=== PATIENT | male | born 1955 | race Caucasian/White ===

== ENCOUNTER 2016-12-16 13:16 | Emergency (ER) | payer MEDICARE, MEDICAID ==
[2016-12-16 13:53] LABS: Hematocrit 49.6 % (42.0-52.0); Hemoglobin 16.3 gm/dL (13.5-18.0); Mean Cell Volume 82.5 fl (78-100); Mean Corpuscular Hemoglobin 27.1 pg (27-31); Mean Corpuscular Hgb Conc 32.9 g/dl (32-36); Mean Platelet Volume 8.7 fl (6.0-9.5); Neutrophil # 4.6 K/mm3 (1.3-6.0); Neutrophil % 77.5 % (42-75.0); Platelet Count 211 K/mm3 (150-450); Red Blood Count 6.01 M/mm3 (4.7-6.0); Red Cell Distribution Width 14.2 % (11.5-14.0); White Blood Count 5.9 K/mm3 (4.0-10.5)
[2016-12-16 14:28] LABS: Albumin * 3.4 gm/dl (3.4-5.0); Anion Gap 14.3 mmol/L (6.8-13.8); BUN/Creatinine Ratio 15.3 (9.0-21.6); Bilirubin, Total 0.7 mg/dL (0.0-1.1); Ca. Corrected For Albumin 9.3 mg/dL (8.4-10.2); Calcium * 9.1 mg/dL (7.9-10.9); Carbon Dioxide 26.5 mmol/L (24-32.6); Potassium 3.8 mmol/L (3.4-4.6); Total Protein 8.5 gm/dL (6.2-8.2)
[2016-12-16 15:09] LABS: Urine Bilirubin Negative (NEGATIVE); Urine Ketone Negative (NEGATIVE); Urine Nitrite Negative (NEGATIVE); Urine Protein Negative (NEGATIVE); Urine Urobilinogen Normal (NORMAL); Urine pH 5.5 pH (5.0-7.0)
[2016-12-16] MEDS ORDERED: NORMAL SALINE 1,000 ML IV ONE (15:12)
[2016-12-16 15:21] LABS: Urine Appearance Clear; Urine Bacteria None Seen; Urine Blood 10 /ul (NEGATIVE); Urine Color Yellow; Urine RBC None Seen /hpf (0-5); Urine WBC None Seen /hpf (0-5)
[2016-12-16] MEDS ORDERED: LEVOFLOXACIN 500 MG TABLET PO ONE (16:48)
[2016-12-16 17:07] VITALS: BP 146/69
[2016-12-16] MEDS ORDERED: LEVOFLOXACIN 500 MG TABLET ONE (17:07)
--- NOTE | 2016-12-16 17:23 | ERNOTE ---
Medical Problem HPI - Narrative Date of Service: 12/16/16 - General Chief Complaint: General Assessment Time Seen by Provider: 12/16/16 14:59 Source: patient Exam Limitations: no limitations - Immun/Allergies/Home Medications Immunizations: IMMUNIZATION HX Immunizations Up to Date Yes History of Influenza Vaccine More Information Required Hx Pneumococcal Vaccination More Information Required Allergies/Adverse Reactions: Allergies aspirin Adverse Reaction (Intermediate, Verified 12/16/16 13:28) upset stomach Home Medications: HOME MEDICATIONS Glimepiride [Amaryl] 1 mg PO DAILY 07/25/16 [Last Taken Unknown] Hydrochlorothiazide 12.5 mg PO DAILY 07/25/16 [Last Taken Unknown] Hydrocodone/Acetaminophen [Lorcet 5-325 mg Tablet] 1 each PO TID PRN 07/25/16 [ Last Taken 07/25/16] Levofloxacin [Levaquin] 500 mg PO DAILY #10 tab 12/16/16 [Last Taken Unknown] - History of Present History Narrative: Patient presents relating he just hasn't been feeling well. He relates this has been going on for 3 days or so. Some cough. No fever. Feels fatigued. He relates no CP or SOB. No vomiting. Relates his abdomen will sometimes cramp but none now. Occasional diarrhea, non-bloody. No focal weakness. He tells be several times he is going to go home today. Timing: constant Severity: mild Modifying Factors - (Improves): Present: other - none Modifying Factors - (Worsens): Present: other - none Review of Systems - Review of Systems Constitutional: Absent: fever Respiratory: Present: cough Cardiology: Absent: chest pain Gastrointestinal/Abdominal: Absent: vomiting Genitourinary: Absent: dysuria Neurological: Absent: weakness All Other Systems: All systems neg except as marked - Patient's Past Medical History Patient History - Medical: Diabetes Type 2, Rheumatoid Arthritis Patient History - Cardiac/Respiratory: COPD, Hyperlipidemia, Peripheral Vascular Disease Patient History - Cancer: No Hx of Cancer Patient History - Surgical Procedures: Colonoscopy, Other - Family History Mother Family History - Medical: Father Family History - Medical: - Social History Living Situations: home Smoking Status: Current every day smoker Have you smoked in the past 12 months: Yes Do you dip or chew tobacco: No Alcohol Use: none Drug Use: none Physical Exam - Physical Exam General Appearance: Present: alert, no apparent distress, other - speaking in full sentences. Non-toxic, no distress. Eye Exam: Normal inspection: bilateral, PERRL: bilateral Ears, Nose, Throat: Present: normal ENT inspection. Absent: pharyngeal erythema , pharyngeal swelling, tonsillar exudate Neck: Present: normal inspection, nontender Respiratory: Present: no respiratory distress, normal breath sounds, no accessory muscle use, lungs clear Cardiovascular/Chest: Present: tachycardia, other - HR 105 on my exam Gastrointestinal/Abdominal: Present: normal bowel sounds, nontender, nondistended, soft. 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 Absent: disoriented to situation Skin Exam: Present: normal color, other - chronic changes lower extremitiees. ED Progress - Results and Orders Patient's Lab Results:: I have reviewed the patient's lab results. - Vital Signs Patient's Vital Signs:: I have reviewed the patient's vital signs. Vital Signs: Vital Signs 12/16/16 12/16/16 12/16/16 13:26 15:01 16:26 Temperature 38.1 C H Pulse Rate 115 H 103 H 108 H Respiratory 14 20 18 Rate Blood Pressure 165/73 131/59 132/59 O2 Sat by Pulse 64 L 95 97 Oximetry 12/16/16 17:05 Temperature Pulse Rate 120 H Respiratory 16 Rate Blood Pressure 146/69 O2 Sat by Pulse 91 Oximetry - X-Ray X-Ray #1 X-Ray: chest X-ray Comments: I reviewed rdiology report and discussed this with the patient. - Progress/Reassessment Chief Complaint: General Assessment Progress:: Re-examined Progress Note-Subjective: 12/16/16 17:18 Patient has probable pneumonia based on exam and CXR. PSI <70. I offered him admission but he dedclines this and wishes to go home. He had told bme that when I first saw him also. He request to go home. I discussed the need for close f/u as well as warnign signs and reasons to return. No other acute life threats found. No CP. Departure - Departure Clinical Impression: Pneumonia Disposition: Home self-care Condition: Stable Instructions: Community-Acquired Pneumonia, Adult, [id number] Additional Instructions: Rest. Antibiotics. Follow-up with primary doctor within 48 hours for a re- check. Return if you change your mind about being admitted to the hospital, develop trouble breathing or if your condition worsens or changes in any way. Referrals: Valentina Garcia FNP [Primary Care Provider] - Prescriptions: Levofloxacin [Levaquin] 500 mg PO DAILY #10 tab
== END 2016-12-16 17:32 | disposition home or self-care (01) ==
LOC: ER 13:16
DX: F17.210 Nicotine dependence, cigarettes, uncomplicated (principal); J18.9 Pneumonia, unspecified organism

== ENCOUNTER 2016-12-18 13:29 | Inpatient (IN) | payer MEDICARE, MEDICAID ==
[2016-12-18 14:01] LABS: Hematocrit 49.4 % (42.0-52.0); Hemoglobin 16.6 gm/dL (13.5-18.0); Mean Cell Volume 80.9 fl (78-100); Mean Corpuscular Hemoglobin 27.2 pg (27-31); Mean Corpuscular Hgb Conc 33.6 g/dl (32-36); Mean Platelet Volume 8.9 fl (6.0-9.5); Neutrophil # 3.7 K/mm3 (1.3-6.0); Platelet Count 170 K/mm3 (150-450); Red Blood Count 6.11 M/mm3 (4.7-6.0); Red Cell Distribution Width 13.9 % (11.5-14.0); White Blood Count 5.4 K/mm3 (4.0-10.5)
[2016-12-18] MEDS: NORMAL SALINE 1,000 ML IV PRN ×3 (14:07→17:36)
[2016-12-18 14:20] LABS: Anion Gap 12.2 mmol/L (6.8-13.8); BUN/Creatinine Ratio 15.7 (9.0-21.6); Bilirubin, Total 0.7 mg/dL (0.0-1.1); CRP 9.2 mg/dL (0.0-0.9); Ca. Corrected For Albumin 9.3 mg/dL (8.4-10.2); Calcium * 8.8 mg/dL (7.9-10.9); Carbon Dioxide 30.3 mmol/L (24-32.6); Potassium 3.5 mmol/L (3.4-4.6); Total Protein 8.1 gm/dL (6.2-8.2)
[2016-12-18 14:21] LABS: Troponin I 0.094 ng/ml (0.00-0.10)
--- NOTE | 2016-12-18 14:40 | ERNOTE ---
Date of Service: 12/18/16 Time Seen by Provider: 12/18/16 13:49 Stated Complaint: PNEUMONIA Presenting Symptoms:: cough Source: patient Exam Limitations: no limitations Immunizations: IMMUNIZATION HX Immunizations Up to Date Yes History of Influenza Vaccine More Information Required Hx Pneumococcal Vaccination More Information Required Allergies/Adverse Reactions: Allergies aspirin Adverse Reaction (Intermediate, Verified 12/16/16 13:28) upset stomach Home Medications: HOME MEDICATIONS Glimepiride [Amaryl] 1 mg PO DAILY 07/25/16 [Last Taken Unknown] Hydrochlorothiazide 12.5 mg PO DAILY 07/25/16 [Last Taken Unknown] Hydrocodone/Acetaminophen [Lorcet 5-325 mg Tablet] 1 each PO TID PRN 07/25/16 [ Last Taken 07/25/16] Levofloxacin [Levaquin] 500 mg PO DAILY #10 tab 12/16/16 [Last Taken Unknown] - History of Present Ilness Narrative: Pt. comes in with c/o SOB for over two weeks. Pt. was seen here two days ago in this ER and was sent home with Levaquin as pt. refused admission. Pt. denies any improvement in symptoms and actually states that symptoms have worsened. Pt. denies any fevers, CP, NVD, but does state that he has SOB, and fatigue. Review of Systems - Review of Systems Constitutional: Present: fever, fatigue, malaise. Absent: weakness EYE: Present: no symptoms reported ENT: Present: no symptoms reported Respiratory: Present: shortness of breath, cough, orthopnea, wheezing Cardiology: Present: no symptoms reported. Absent: edema Gastrointestinal/Abdominal: Present: no symptoms reported. Absent: nausea, vomiting, diarrhea Genitourinary: Present: no symptoms reported. Absent: frequency, decreased urinary output Musculoskeletal: Present: no symptoms reported. Absent: back pain, neck pain, joint pain Skin: Present: no symptoms reported Neurological: Present: no symptoms reported. Absent: headache, dizziness/light- headedness, numbness, tingling All Other Systems: All systems neg except as marked - Patient's Past Medical History Patient History - Medical: Diabetes Type 2, Rheumatoid Arthritis Patient History - Cardiac/Respiratory: COPD, Pneumonia Patient History - Cancer: No Hx of Cancer Patient History - Surgical Procedures: Colonoscopy, Other Patient History - Other: None - Family History Mother Family History - Medical: Father Family History - Medical: - Social History Living Situations: home Smoking Status: Current every day smoker Alcohol Use: none Drug Use: none - Immunizations Immunizations Up to Date: Yes Hx Pneumococcal Vaccination: More Information Required to Determine History of Influenza Vaccine: More Information Required to Determine Physical Exam - Physical Exam General Appearance: Present: wd/wn, alert, no apparent distress Eye Exam: Normal inspection: bilateral, PERRL: bilateral, EOMI: bilateral Ears, Nose, Throat: Present: normal ENT inspection, hearing grossly normal, normal pharynx Neck: Present: normal inspection, nontender. Absent: lymphadenopathy (R), lymphadenopathy (L) Respiratory: Present: no respiratory distress, chest nontender, lungs clear, accessory muscle use, decreased breath sounds, wheezing Cardiovascular/Chest: Present: no murmur, normal peripheral pulses, tachycardia Gastrointestinal/Abdominal: Present: normal bowel sounds, nontender, nondistended, soft, no organomegaly Back Exam: Present: normal inspection, normal range of motion, no CVA tenderness , no vertebral tenderness Extremity Exam: Present: normal inspection, non-tender, no edema, normal range of motion Neurological Exam: Present: alert, oriented, normal mood/affect, no motor/ sensory deficits Skin Exam: Present: warm/dry, pallor ED Progress - Date and Time Seen: Date and Time: 12/18/16 13:57 Reveiwed previous notes from 12/16 feel that pt. likely needs admission for IV abx and steroids and resp tx.. 12/18/16 13:58 12/18/16 16:02 Repeat EKG sinus rhythm. Pt. keeps reverting top A fib RVR occasionally. Discussed cassed with Dr Castillo and will admit for pneumonia and A fib RVR to [facility]. 12/18/16 16:05 - Results and Orders Patient's Lab Results:: I have reviewed the patient's lab results. - Vital Signs Patient's Vital Signs:: I have reviewed the patient's vital signs. Vital Signs: Vital Signs 12/18/16 13:38 Temperature 35.9 C L Pulse Rate 165 H Respiratory 18 Rate Blood Pressure 102/63 O2 Sat by Pulse 91 Oximetry - EKG EKG: RBBB, other - sinus tach EKG read: Interp. by me - Progress/Reassessment Chief Complaint: Upper Respiratory Symptoms Progress:: Unchanged Departure - Departure Clinical Impression: Pneumonia Qualifiers: Pneumonia type: due to unspecified organism Laterality: left Lung location: lower lobe of lung Qualified Code(s): J18.1 - Lobar pneumonia, unspecified organism A-fib Qualifiers: Atrial fibrillation type: paroxysmal Qualified Code(s): I48.0 - Paroxysmal atrial fibrillation Disposition: [facility] Condition: Serious
[2016-12-18 15:43] LABS: Urine Bilirubin Negative (NEGATIVE); Urine Ketone Negative (NEGATIVE); Urine Nitrite Negative (NEGATIVE); Urine Protein Negative (NEGATIVE); Urine Urobilinogen Normal (NORMAL)
[2016-12-18] MEDS ORDERED: ALBUTEROL SULFATE/IPRATROPIUM 3 ML NEBU IH ONE ×2 (15:47→15:51)
[2016-12-18] MEDS ORDERED: DILTIAZEM HCL 5 MG/ML VIAL IV ONE (16:02)
[2016-12-18 16:05] LABS: Urine Appearance Clear; Urine Bacteria None Seen; Urine Blood 10 /ul (NEGATIVE); Urine Color Yellow; Urine RBC None Seen /hpf (0-5); Urine WBC None Seen /hpf (0-5)
[2016-12-18] MEDS ORDERED: AZITHROMYCIN 500 MG in DEXTROSE 5 % IN WATER 250 ML IV SCH ×2 (16:30)
[2016-12-18] MEDS ORDERED: FUROSEMIDE 10 MG/ML VIAL IV ONE (17:53)
[2016-12-18] MEDS ORDERED: HYDROcodone/ACETAMINOPHEN 1 EACH TABLET PO PRN (17:55)
[2016-12-18 18:20] LABS: T4 Free * 1.38 ng/dL (0.76-1.46); TSH * 1.245 uIU/mL (0.358-3.74)
[2016-12-18] MEDS ORDERED: FUROSEMIDE 10 MG/ML VIAL ONE (19:00)
[2016-12-18] MEDS: ENOXAPARIN SODIUM 40 MG/0.4 ML SYRG SC SCH (19:09)
--- NOTE | 2016-12-18 20:04 | HP ---
Chief Complaint - Chief Complaint Date of Service: 12/18/16 Time of Service: 20:03 Chief Complaint: Weakness & Fatigue. Source of HPI- Pt; unreliable, ER provider notes. History of Present Illness: Mr. Hunter is a 61-yr-old WM pt of Dr. Khushbu Castillo with a PMH of: COPD, DM II, HLD, PVF, Rheumatoid Athritis & TIA. The pt does not appear to be a precise historian. He is unable to elaborate how he has been feeling, nor able to state the ill events that led him to seek medical care. He says he has not felt well, "just sick." It appears that he was seen in the ER on 12/16/16 with complaints of feeling fatigue and some coughing but he denied SOB. ERP was going to admit him to the hospital for probable Pneumonia but the pt declined to be admitted. He was the discharged on Levaquin 500 mg PO X 5 days. He came back to the [facility] ER again today with complaints of SOB and fatigue. During evaluation at the ED, the electrolytes and hematology lab work was mostly unremarkable except for hyponatremia. The UA did not show any infection. The CXR did show some atelectasis, but pt did not have other clinical signs to suggest Pneumonia. However, he was noted to have Luca lower leg swelling and had an elevated BNP. Pt will be admitted inpatient for at least 2 midnights due to signs of fluid overload/heart failure which will respond well to IV diuretics. - Patient's Past Medical History Patient History - Medical: Diabetes Type 2, Rheumatoid Arthritis Patient History - Cardiac/Respiratory: COPD, Hyperlipidemia, Pneumonia, Peripheral Vascular Disease, TIA Patient History - Cancer: No Hx of Cancer Patient History - Surgical Procedures: Colonoscopy, Other Patient History - Other: None - Family History Mother Family History - Medical: , Diabetes Type 2, Dementia Family History - Cardiac/Respiratory: CVA/Stroke Family History - Cancer: No pertinent family hx Father Family History - Medical: , Diabetes Type 2 Family History - Cardiac/Respiratory: No pertinent hx Family History - Cancer: No pertinent family hx - Social History Living Situations: alone Smoking Status: Current every day smoker Have you smoked in the past 12 months: Yes Alcohol Use: none Drug Use: none - Immunizations Immunizations Up to Date: Yes Hx Pneumococcal Vaccination: Yes History of Influenza Vaccine: Yes Review Of Systems (GEN) - Review of Systems Generalized/Overall Review: Present: Weakness, Fatigue. Absent: Chills, Fever, Diaphoresis EENTM: Absent: Eye Pain, Blurred Vision, Tearing, Nose Congestion, Mouth Pain Respiratory: Present: Shortness of Breath. Absent: Cough Cardiac: Absent: Chest Pain, Edema, Palpitations, Syncope Abdominal: Absent: Nausea, Vomiting, Abdominal Pain, Constipation, Diarrhea Genitourinary: Absent: Burning, Itching, Urgency Musculoskeletal: Absent: Joint Pain, Back Pain Neurological: Present: Weakness. Absent: Headache, Anxiety Skin: Absent: Dryness, Lumps, Bruising Endocrine: Absent: Intolerance to Cold, Intolerance to Heat, Increased Thirst Misc: All systems neg except as marked Immunizations: IMMUNIZATION HX Immunizations Up to Date Yes History of Influenza Vaccine More Information Required Hx Pneumococcal Vaccination More Information Required Allergies/Adverse Reactions: Allergies Allergy/AdvReac Type Severity Reaction Status Date / Time aspirin AdvReac Intermediate Nausea Verified 12/18/16 16:47 Home Medications: HOME MEDICATIONS Atorvastatin Calcium [Lipitor] 40 mg PO HS 12/18/16 [Last Taken Unknown] Clopidogrel Bisulfate [Plavix] 75 mg PO DAILY 12/18/16 [Last Taken Unknown] Glimepiride [Amaryl] 1 mg PO DAILY 12/18/16 [Last Taken Unknown] HYDROcodone/ACETAMINOPHEN [[place] 5-325] 1 tab PO TID PRN 12/18/16 [Last Taken Unknown] Hydrochlorothiazide [Microzide] 12.5 mg PO DAILY 12/18/16 [Last Taken Unknown] Exam - Exam Vital Signs: Vital Signs - Last Taken Temp 37.1 C 12/18/16 17:21 Pulse 92 12/18/16 19:08 Resp 22 H 12/18/16 17:21 BP 134/80 12/18/16 17:21 Pulse Ox 96 12/18/16 17:21 Constitutional: Present: Alert, Oriented x3, Other - disheveled., Thin and frail , Looks Older than stated age ENT Exam: Present: normal ENT inspection, hearing grossly normal, other - poor dentition Eye Exam: bilateral eye: normal inspection, PERRL Neck: Present: full range of motion, supple, normal inspection, trachea midline Back Exam: Present: normal inspection, no CVA tenderness Breasts: Present: Exam deferred Respiratory: Present: lungs clear, no accessory muscle use, No wheezing Cardiovascular/Chest: Present: regular rate, rhythm, no murmur Abdomen: Present: Normal bowel sounds, soft, nontender /Rectal: Present: Exam deferred Extremity: Present: pedal edema - non pitting Skin Exam: Present: no cyanosis, other - discolouration on BLE, Lymphatic: Present: no adenopathy Neurologic: Present: no motor/sensory deficits, alert, oriented x 3 Eye contact: Present: cooperative, good eye contact, normal speech Thoughts: Present: normal thought pattern, no apparent hallucination Diagnostic Studies: Abnormal Lab Results 12/18/16 Range/Units 16:40 Lactic Acid, Venous 2.3 H* (0.4-2.0) mmol/L Laboratory Results WBC 5.4 K/mm3 (4.0-10.5) 12/18/16 13:55 RBC 6.11 M/mm3 (4.7-6.0) H 12/18/16 13:55 Hgb 16.6 gm/dL (13.5-18.0) 12/18/16 13:55 Hct 49.4 % (42.0-52.0) 12/18/16 13:55 MCV 80.9 fl (78-100) 12/18/16 13:55 MCH 27.2 pg (27-31) 12/18/16 13:55 MCHC 33.6 g/dl (32-36) 12/18/16 13:55 RDW 13.9 % (11.5-14.0) 12/18/16 13:55 Plt Count 170 K/mm3 (150-450) 12/18/16 13:55 MPV 8.9 fl (6.0-9.5) 12/18/16 13:55 Immature Gran % (Auto) 0.40 % (0.001-0.429) 12/18/16 13:55 Immature Gran # (Auto) 0.02 K/mm3 (0.000-0.0310) 12/18/16 13:55 Neutrophils % 69.0 % (42-75.0) 12/18/16 13:55 Lymphocytes % 13.7 % (20-51) L 12/18/16 13:55 Monocytes % 16.5 % (0.0-9) H 12/18/16 13:55 Eosinophils % 0.2 % (0.0-3.0) 12/18/16 13:55 Basophils % 0.2 % (0.0-1.0) 12/18/16 13:55 Nucleated RBC % 0.0 k/mm3 (0-1) 12/18/16 13:55 Neutrophils # 3.7 K/mm3 (1.3-6.0) 12/18/16 13:55 Lymphocytes # 0.7 k/mm3 (1.5-3.5) L 12/18/16 13:55 Monocytes # 0.9 k/mm3 (0.0-1.0) 12/18/16 13:55 Eosinophils # 0.0 k/mm3 (0.0-0.7) 12/18/16 13:55 Absolute Basophils 0.0 k/mm3 (0.0-0.1) 12/18/16 13:55 ESR 60 mm/hr (0-10) H 12/18/16 13:55 Sodium 127 mmol/L (132-142) L 12/18/16 13:55 Plasma Sodium 127 mmol/L (130-142) L 12/18/16 13:55 Potassium 3.5 mmol/L (3.4-4.6) 12/18/16 13:55 Chloride 88 mmol/L (97-106) L 12/18/16 13:55 Carbon Dioxide 30.3 mmol/L (24-32.6) 12/18/16 13:55 Anion Gap 12.2 mmol/L (6.8-13.8) 12/18/16 13:55 BUN 21 mg/dL (6-23) 12/18/16 13:55 Creatinine 1.34 mg/dL (0.4-1.4) 12/18/16 13:55 Est GFR (Non-Af Amer) 58 mL/min (60-130) L 12/18/16 13:55 BUN/Creatinine Ratio 15.7 (9.0-21.6) 12/18/16 13:55 Random Glucose 100 mg/dL (70-110) 12/18/16 13:55 Lactic Acid, Venous 2.3 mmol/L (0.4-2.0) H* 12/18/16 16:40 Calcium 8.8 mg/dL (7.9-10.9) 12/18/16 13:55 Calcium Adj for Albumin 9.3 mg/dL (8.4-10.2) 12/18/16 13:55 Total Bilirubin 0.7 mg/dL (0.0-1.1) 12/18/16 13:55 AST 45 U/L (0-48) 12/18/16 13:55 ALT 21 U/L (19-67) 12/18/16 13:55 Alkaline Phosphatase 142 U/L (50-170) 12/18/16 13:55 Troponin I 0.094 ng/ml (0.00-0.10) 12/18/16 13:55 C-Reactive Prot, Quant 9.2 mg/dL (0.0-0.9) H 12/18/16 13:55 B-Natriuretic Peptide 1802 pg/mL (5-175) H 12/18/16 13:55 Total Protein 8.1 gm/dL (6.2-8.2) 12/18/16 13:55 Albumin 3.0 gm/dl (3.4-5.0) L 12/18/16 13:55 Procalcitonin 0.17 ng/mL (0.05-0.50) 12/18/16 16:55 TSH 1.245 uIU/mL (0.358-3.74) 12/18/16 16:55 Free T4 1.38 ng/dL (0.76-1.46) 12/18/16 16:55 Urine Color Yellow 12/18/16 15:14 Urine Appearance Clear 12/18/16 15:14 Urine pH 6.0 pH (5.0-7.0) 12/18/16 15:14 Ur Specific Center 1.010 SP.GR. (1.005-1.030) 12/18/16 15:14 Urine Protein Negative mg/dL (NEGATIVE) 12/18/16 15:14 Urine Glucose (UA) Negative mg/dL (NEGATIVE) 12/18/16 15:14 Urine Ketones Negative mg/dL (NEGATIVE) 12/18/16 15:14 Urine Blood 10 /ul (NEGATIVE) H 12/18/16 15:14 Urine Nitrate Negative (NEGATIVE) 12/18/16 15:14 Urine Bilirubin Negative mg/dl (NEGATIVE) 12/18/16 15:14 Urine Urobilinogen Normal EU/dl (NORMAL) 12/18/16 15:14 Ur Leukocyte Esterase Negative /ul (NEGATIVE) 12/18/16 15:14 Urine RBC None seen /hpf (0-5) 12/18/16 15:14 Urine WBC None seen /hpf (0-5) 12/18/16 15:14 Ur Epithelial Cells None seen /hpf (0-5) 12/18/16 15:14 Urine Bacteria None seen (NONE) 12/18/16 15:14 Urine Culture Comments No culture indicated 12/18/16 15:14 Influenza Type A Ag Negative (NEGATIVE) 12/18/16 14:43 Influenza Type B Ag Negative (NEGATIVE) 12/18/16 14:43 Mycoplasma pneumon IgM Non reactive (NonReactive) 12/18/16 13:55 Assessment/Plan - Assessment/Plan (1) Congestive heart failure (CHF) Assessment: Pt shows clinical signs of Heart failure- Fatigue, SOB, elevated BNP, & Volume overload- Peripheral Edema. Meets Class I on NYHA functional classification of HF. He has never had an Echocardiogram according to [facility] records. Consider TTE to confirm the diagnosis of HF & LVEF. Will diureses with IV Lasix to reduce fluid overload, strict I/Os, daily weight, NA restricted diet. BMP labs in am. Problem: Acute (2) Diabetes Assessment: Last HgA1C on 05/2016 was 6.8. On glimepiride Problem: Chronic Qualifiers: Diabetes mellitus type: type 2 (3) Rheumatoid arthritis Assessment: He has had RA for numerous years and he was seen by the [facility] Rheumatology. It appears that Dr. Juan made a consulation in March 2015, but the pt never followed through with the appt, and now has progressive joint damage involving hand extremities. Consider PT/OT & NSAIDs for symtom control e.g celecoxib. Problem: Chronic (4) PVD (peripheral vascular disease) Problem: Chronic (5) COPD (chronic obstructive pulmonary disease) Assessment: Provide smoking cessation education, Consider adding mainstays drug inhalers at discharge. Problem: Chronic
[2016-12-18] MEDS ORDERED: ROSUVASTATIN CALCIUM 10 MG TABLET PO SCH (21:00)
[2016-12-18 23:38] LABS: CKMB 3.4 ng/mL (0.0-9.0)
[2016-12-18 23:40] LABS: Troponin I 0.151 ng/ml (0.00-0.10)
[2016-12-19 06:03] LABS: Troponin I 0.108 ng/ml (0.00-0.10)
[2016-12-19] MEDS: INSULIN LISPRO 100 UNITS/ML VIAL SC SCH ×3 (06:40→16:09)
[2016-12-19] MEDS ORDERED: CLOPIDOGREL BISULFATE 75 MG TABLET PO SCH (09:00)
[2016-12-19] MEDS ORDERED: HYDROCHLOROTHIAZIDE 12.5 MG CAPSULE PO SCH (09:00)
[2016-12-19] MEDS ORDERED: LEVOFLOXACIN/D5W 500 MG/100 ML BAG IV SCH (09:00)
[2016-12-19] MEDS ORDERED: LEVOFLOXACIN 750 MG TABLET PO SCH (11:00)
[2016-12-19] MEDS ORDERED: FUROSEMIDE 10 MG/ML VIAL IV ONE (14:58)
[2016-12-19] MEDS ORDERED: DILTIAZEM HCL 5 MG/ML VIAL IV STA (15:45)
--- NOTE | 2016-12-19 16:26 | PN ---
Progess Note - Interim Narrative: 12/19/16 16:21 Patient seen this AM and without acute issues overnight. However, this afternoon , patient's HR increased to ~180bpm. Unprovoked. Asymptomatic. Cardizem bolus given with improvement in HR down to 120s. EKGs reviewed and difficult to interpret secondary to artifact. Patient would benefit from seeing cardiology as well as having an echocardiogram. We do not do echos on the weekends and we do not have cardiologists at our facility. After discussing with the patient, I called [facility] to discuss the patient's case and will await a call back. Plan is for likely transfer to [facility] for cardiology evaluation.
[2016-12-19 16:27] LABS: BUN/Creatinine Ratio 17.7 (9.0-21.6); Carbon Dioxide 34.2 mmol/L (24-32.6); Estimated Creat Clear 58.7; Potassium 3.3 mmol/L (3.4-4.6)
[2016-12-19 16:28] LABS: Anion Gap 9.1 mmol/L (6.8-13.8); CKMB 3.2 ng/mL (0.0-9.0); Calcium * 8.8 mg/dL (7.9-10.9); Magnesium 1.9 mg/dL (1.2-2.8); Troponin I 0.069 ng/ml (0.00-0.10)
[2016-12-19] MEDS ORDERED: MAGNESIUM SULFATE 4 MEQ/ML VIAL IV ONE (17:16)
--- NOTE | 2016-12-19 17:16 | DS ---
(1) Tachyarrhythmia Problem: Acute (2) Congestive heart failure (CHF) Problem: Acute (3) COPD (chronic obstructive pulmonary disease) Problem: Suspected Qualifiers: COPD type: COPD with acute exacerbation Qualified Code(s): J44.1 - Chronic obstructive pulmonary disease with (acute) exacerbation Description of Stay: ADMISSION DATE: 12.18.2016 DISCHARGE DATE: 12.19.2016 ADMISSION HPI: Mr. Hunter is a 61-yr-old WM pt of Dr. Khushbu Castillo with a PMH of: COPD, DM II, HLD, PVF, Rheumatoid Athritis & TIA. The pt does not appear to be a precise historian. He is unable to elaborate how he has been feeling, nor able to state the ill events that led him to seek medical care. He says he has not felt well, "just sick." It appears that he was seen in the ER on 12/16/16 with complaints of feeling fatigue and some coughing but he denied SOB. ERP was going to admit him to the hospital for probable Pneumonia but the pt declined to be admitted. He was the discharged on Levaquin 500 mg PO X 5 days. He came back to the [facility] ER again today with complaints of SOB and fatigue. During evaluation at the ED, the electrolytes and hematology lab work was mostly unremarkable except for hyponatremia. The UA did not show any infection. The CXR did show some atelectasis, but pt did not have other clinical signs to suggest Pneumonia. However, he was noted to have Luca lower leg swelling and had an elevated BNP. Pt will be admitted inpatient for at least 2 midnights due to signs of fluid overload/heart failure which will respond well to IV diuretics. AM on 12/19/2015 patient without new issues or concerns. However, later that afternoon, the patient's HR increased to ~180bpm. Unprovoked. Asymptomatic. Cardizem bolus given with improvement in HR down to 120s. EKGs reviewed and difficult to interpret secondary to artifact and tachy - Aflutter vs. SVT vs sinus tach. ST depression noted on EKGs. Patient would benefit from cardiology evaluation as well as having an echocardiogram. We do not do echos on the weekends and we do not have cardiologists at our facility. After discussing with the patient, I called [facility] to discuss the patient's case. Patient accepted for transfer by Dr. Martinez. Patient will go to the CCU at [place]. Procedures Performed: none Results and Findings: Laboratory Tests 12/18/16 12/18/16 12/18/16 13:55 13:55 13:55 WBC 5.4 Hgb 16.6 Hct 49.4 Plt Count 170 ESR Sodium 127 L Plasma Sodium 127 L Potassium 3.5 Chloride 88 L Carbon Dioxide 30.3 Anion Gap 12.2 BUN 21 Creatinine 1.34 Est GFR (Non-Af Amer) 58 L Lactic Acid, Venous 2.2 H* Calcium 8.8 Calcium Adj for Albumin 9.3 Magnesium Total Bilirubin 0.7 AST 45 ALT 21 Alkaline Phosphatase 142 Creatine Kinase CK-MB (CK-2) CK-MB (CK-2) Rel Index Troponin I 0.094 C-Reactive Prot, Quant 9.2 H B-Natriuretic Peptide Total Protein 8.1 Albumin 3.0 L Procalcitonin TSH Free T4 12/18/16 12/18/16 12/18/16 13:55 13:55 16:40 WBC Hgb Hct Plt Count ESR 60 H Sodium Plasma Sodium Potassium Chloride Carbon Dioxide Anion Gap BUN Creatinine Est GFR (Non-Af Amer) Lactic Acid, Venous 2.3 H* Calcium Calcium Adj for Albumin Magnesium Total Bilirubin AST ALT Alkaline Phosphatase Creatine Kinase CK-MB (CK-2) CK-MB (CK-2) Rel Index Troponin I C-Reactive Prot, Quant B-Natriuretic Peptide 1802 H Total Protein Albumin Procalcitonin TSH Free T4 12/18/16 12/18/16 12/18/16 16:55 16:55 23:06 WBC Hgb Hct Plt Count ESR Sodium Plasma Sodium Potassium Chloride Carbon Dioxide Anion Gap BUN Creatinine Est GFR (Non-Af Amer) Lactic Acid, Venous Calcium Calcium Adj for Albumin Magnesium Total Bilirubin AST ALT Alkaline Phosphatase Creatine Kinase 322 H CK-MB (CK-2) 3.4 CK-MB (CK-2) Rel Index 1.1 Troponin I 0.151 H* C-Reactive Prot, Quant B-Natriuretic Peptide Total Protein Albumin Procalcitonin 0.17 TSH 1.245 Free T4 1.38 12/18/16 12/19/16 12/19/16 23:06 05:34 16:00 WBC Hgb Hct Plt Count ESR Sodium 133 Plasma Sodium 133 Potassium 3.3 L Chloride 93 L Carbon Dioxide 34.2 H Anion Gap 9.1 BUN 23 Creatinine 1.30 Est GFR (Non-Af Amer) 60 Lactic Acid, Venous 1.2 Calcium 8.8 Calcium Adj for Albumin Magnesium 1.9 Total Bilirubin AST ALT Alkaline Phosphatase Creatine Kinase 269 H 266 H CK-MB (CK-2) 3.0 3.2 CK-MB (CK-2) Rel Index 1.1 1.2 Troponin I 0.108 H 0.069 C-Reactive Prot, Quant B-Natriuretic Peptide Total Protein Albumin Procalcitonin TSH Free T4 Discharge Disposition: [facility] Disposition: [facility] Condition: Fair Discharge Activity: Other - Bedrest until further orders per accepting facility Discharge Diet: NPO - NPO until further orders per accepting facility Referrals: Khushbu Castillo DO [Primary Care Provider] - Complete Home Medications List: Complete Home Medication List: Atorvastatin Calcium [Lipitor] 40 mg PO HS 12/18/16 Clopidogrel Bisulfate [Plavix] 75 mg PO DAILY 12/18/16 Glimepiride [Amaryl] 1 mg PO DAILY 12/18/16 HYDROcodone/ACETAMINOPHEN [[place] 5-325] 1 tab PO TID PRN 12/18/16 Hydrochlorothiazide [Microzide] 12.5 mg PO DAILY 12/18/16
[2016-12-19] MEDS ORDERED: DILTIAZEM HCL 125 MG in DEXTROSE 5 % IN WATER 100 ML IV PRN ×2 (17:19)
[2016-12-19] MEDS: ENOXAPARIN SODIUM 40 MG/0.4 ML SYRG SC SCH (17:21)
[2016-12-19] MEDS ORDERED: POTASSIUM CHLORIDE 20 MEQ TABLET.SA PO ONE (17:30)
[2016-12-19] MEDS ORDERED: MAGNESIUM SULFATE IN WATER 50 ML IV ONE (17:45)
[2016-12-19 18:06] VITALS: BP 104/71
== END 2016-12-19 19:40 | disposition short-term general hospital (02) | DRG 292 ==
LOC: ER 13:29 → UNDOADMIN 16:12 → SCU 16:12 → UNDOADMIN 12-19 09:43
PROVIDERS: ADMIT Internal Medicine; ATTEND Internal Medicine
DX: I50.9 Heart failure, unspecified (principal); E87.1 Hypo-osmolality and hyponatremia; J44.1 Chronic obstructive pulmonary disease with (acute) exacerbation; R00.0 Tachycardia, unspecified; E11.9 Type 2 diabetes mellitus without complications; M06.9 Rheumatoid arthritis, unspecified; I73.9 Peripheral vascular disease, unspecified; E78.5 Hyperlipidemia, unspecified; F17.210 Nicotine dependence, cigarettes, uncomplicated

== ENCOUNTER 2017-04-21 10:02 | Emergency (ER) | payer MEDICARE, MEDICAID ==
--- NOTE | 2017-04-21 10:58 | ERNOTE ---
Headache ER HPI - Narrative Date of Service: 04/21/17 - General Presenting Symptoms: headache Time Seen by Provider: 04/21/17 10:31 Source: patient, RN notes reviewed, old records Exam Limitations: dementia - Immun/Allergies/Home Medications Immunizations: IMMUNIZATION HX Immunizations Up to Date Yes History of Influenza Vaccine Yes Hx Pneumococcal Vaccination Yes Allergies/Adverse Reactions: Allergies aspirin Adverse Reaction (Intermediate, Verified 04/21/17 10:11) Nausea Home Medications: HOME MEDICATIONS Atorvastatin Calcium [Lipitor] 40 mg PO HS 12/18/16 [Last Taken Unknown] Clopidogrel Bisulfate [Plavix] 75 mg PO DAILY 12/18/16 [Last Taken Unknown] Glimepiride [Amaryl] 1 mg PO DAILY 12/18/16 [Last Taken Unknown] HYDROcodone/ACETAMINOPHEN [[place] 5-325] 1 tab PO TID PRN 12/18/16 [Last Taken Unknown] Hydrochlorothiazide [Microzide] 12.5 mg PO DAILY 12/18/16 [Last Taken Unknown] - History of Present Illness Narrative: 62 y/o male brought to the ED by the [facility] for a headache that began about 3 weeks ago. He reports not having trouble with headaches in the past. He also has pain and stiffness in his neck that radiates into his right arm. He reports falling at the local grocery store and hitting his head recently, but is unsure when this happened. He is anticoagulated on Coumadin. He takes Vicodin routinely and reports that this does not relieve the headache. Timing of Headache: cannot pinpoint onset, constant Context Headache: Present: new onset Quality: Present: achy Severity Maximum: Present: severe Severity-Currently: Present: severe Headache frequency: Present: no recent headache Modifying Factors - (Improves): Denies: rest, medication Modifying Factors - (Worsens): Denies: movement, exposure to light Associated Symptoms: Reports: nausea, light-headedness, neck pain/stiffness. Denies: fever/chills, vomiting, nasal congestion, nasal drainage, facial pain, weakness, numbness/tingling, vision changes, confusion, dizziness, loss of consciousness, speech problems Exacerbated by:: Denies: light, noise Prior Treament: Denies: recently seen, similar symptoms before Review of Systems - Review of Systems Constitutional: Absent: recent illness, fever EYE: Absent: eye pain, vision changes ENT: Absent: ear pain, nose congestion, nasal drainage, sore throat Respiratory: Absent: shortness of breath, orthopnea Cardiology: Absent: chest pain, palpitations, syncope, edema Gastrointestinal/Abdominal: Present: nausea. Absent: vomiting, abdominal pain, eating less, drinking less Genitourinary: Present: no symptoms reported Musculoskeletal: Present: muscle pain, neck pain. Absent: joint pain Skin: Absent: rash, lesions, lumps Neurological: Present: headache, dizziness/light-headedness. Absent: weakness, numbness, tingling Endocrine: Present: no symptoms reported Hematologic/Lymphatic: Present: easy bruising, easy bleeding Psych: Absent: anxiety, depressed - Patient's Past Medical History Patient History - Medical: Diabetes Type 2, Rheumatoid Arthritis Patient History - Cardiac/Respiratory: COPD, Hyperlipidemia, Pneumonia, Peripheral Vascular Disease, TIA Patient History - Cancer: No Hx of Cancer Patient History - Surgical Procedures: Colonoscopy, Other Patient History - Other: None - Family History Mother Family History - Medical: , Diabetes Type 2, Dementia Family History - Cardiac/Respiratory: CVA/Stroke Family History - Cancer: No pertinent family hx Father Family History - Medical: , Diabetes Type 2 Family History - Cardiac/Respiratory: No pertinent hx Family History - Cancer: No pertinent family hx - Social History Living Situations: alone Abuse History: No History of abuse Psych History: No pertinent hx Does anyone smoke in the home?: Yes Smoking Status: Heavy tobacco smoker Have you smoked in the past 12 months: Yes Alcohol Use: none Drug Use: none - Immunizations Immunizations Up to Date: Yes Hx Pneumococcal Vaccination: Yes History of Influenza Vaccine: Yes Physical Exam - Physical Exam General Appearance: Present: wd/wn, alert, no apparent distress, other - Disheveled, appears much older than reported age Eye Exam: Normal inspection: bilateral, PERRL: bilateral, EOMI: bilateral Ears, Nose, Throat: Present: normal ENT inspection. Absent: sinus pain/drainage , pharyngeal erythema Neck: Present: supple, limited range of motion - mild d/t right posterior neck pain. Absent: lymphadenopathy (R), lymphadenopathy (L), thyromegaly Respiratory: Present: no respiratory distress, no accessory muscle use, decreased breath sounds, expiration (prolonged), rhonchi, wheezing Cardiovascular/Chest: Present: regular rate, rhythm, no murmur Extremity Exam: Present: normal inspection, no edema, decreased range of motion - right shoulder d/t neck pain Neurological Exam: Present: alert, oriented, normal mood/affect, no motor/ sensory deficits, other - hx dementia, poor short term memory Skin Exam: Present: normal color, warm/dry ED Progress - Results and Orders Patient's Lab Results:: I have reviewed the patient's lab results. - Vital Signs Patient's Vital Signs:: I have reviewed the patient's vital signs. Vital Signs: Vital Signs 04/21/17 10:05 Temperature 36.4 C L Pulse Rate 85 Respiratory 18 Rate Blood Pressure 146/77 O2 Sat by Pulse 93 Oximetry - CT/Ultrasound CT/Ultrasound Narrative: CT Head W/O Contrast *: Age-related cortical atrophy and periventricular white matter chronic ischemic changes are present. Intracranial atherosclerotic calcifications noted. Stable encephalomalacia of the posterior right parietal region near the cerebral convexity likely from an old infarct. Midline posterior fossa extra-axial cyst, most likely an arachnoid cyst , stable. No acute intracranial hemorrhage. No midline shift or herniation. Ty and white matter differentiation is grossly intact. No obvious soft tissue swelling or scalp hematoma noted. Skull grossly intact, without signs of depressed skull fracture. There is a trace amount of fluid within the left maxillary sinus. Mucosal thickening of the bilateral anterior ethmoid air cells noted. The mastoid processes are symmetrically underpneumatized, likely normal variant, stable. IMPRESSION: 1. No acute intracranial hemorrhage or mass effect. 2. Nonspecific trace amount of left maxillary sinus fluid. Mucosal thickening of the bilateral ethmoid air cells. Correlate clinically for incidental sinusitis or facial bone injury. 3. Additional comments as above. Electronically signed by Vera Stephen M.D.. CT Cervical W/O Contrast *, with Coronal and Sagittal Reconstructions: Axial images demonstrate no definable fracture lucency or linear cortical discontinuity. Patient has interval development of multiple small lucent lesions of bone within the left posterior C4 vertebral body (axial image 45), centrally within the C4 vertebral body, near the inferior endplate (series 3 image 51, series 4 image 26), near the superior endplate of the C5 vertebral body (series 3 image 53, series 4 image 26), posterior C6 vertebral body, slightly left of midline (series 3 image 61, series 4 image 28). Some of these lesions are associated with associated disc space narrowing at C3-C4 and C4-C5 and C5-C6 levels. There is also some perilesional sclerosis. There is no obvious soft tissue mass. Sagittal reconstructions demonstrate grossly normal craniocervical junction. Atlantodens interval demonstrates degenerative spurring, stable without abnormal widening. Prevertebral soft tissues are unremarkable. There is anterior wedging of the C7 vertebral body, stable. There is no evidence for retropulsion of the posterior cortex. Multilevel disc space narrowing noted at C3-C4, C4-C5, C5-C6 levels, with interval progression of disc space narrowing at C4-C5. Facet joints are in normal alignment. Spinous processes are intact. Coronal reconstructions demonstrate intact C2 dens. Normal articulation of the C1 lateral masses with C2 and the occipital condyles. Lung apices demonstrate bilateral apical emphysematous changes, as well as interlobular septal thickening, and the dependent opacities. There is a small 6 mm low-density lesion of the right thyroid lobe, stable without evidence for any additional abnormalities of the is a lateral neck. This is likely of low clinical significance, and no further imaging is recommended, unless otherwise clinically indicated. IMPRESSION: 1. No evidence of acute cervical spine fracture. 2. Interval development of multiple lucent lesions of bone within the cervical spine as discussed above. Some of which are associated with progression of adjacent disc space narrowing. Differential diagnosis includes erosive/inflammatory spondyloarthropathy versus possible metastatic disease/multiple myeloma. Also consider infectious process. Clinical correlation is advised. Consider further evaluation of the cervical spine by MRI as needed. 3. Biapical emphysematous changes, and interlobular septal thickening. Consider superimposed fibrosis versus pulmonary edema versus lymphangitic spread of tumor. Electronically signed by Vera Stephen M.D.. - Progress/Reassessment Chief Complaint: Headache Progress:: Unchanged Plan - Plan Plan: Dr. Castillo contacted regarding lab and CT results - C-Spine lesions of unclear etiology, unlikely infectious process d/t patient's lack of other constitutional symptoms and the headache being ongoing for at least 3 weeks. Patient is to f/u with her as scheduled later in week. Patient in agreement with plan, to continue his routine medications. Departure Clinical Impression: Neck pain Headache Qualifiers: Headache type: unspecified Headache chronicity pattern: unspecified pattern Intractability: not intractable Qualified Code(s): R51 - Headache - Departure Disposition: Home Follow Up Needed Condition: Stable Additional Instructions: Continue your routine medications, follow up with Dr. Castillo as scheduled Referrals: Khushbu Castillo DO [Primary Care Provider] -
[2017-04-21 11:07] LABS: Hematocrit 51.1 % (42.0-52.0); Hemoglobin 16.7 gm/dL (13.5-18.0); Mean Cell Volume 82.8 fl (78-100); Mean Corpuscular Hemoglobin 27.1 pg (27-31); Mean Corpuscular Hgb Conc 32.7 g/dl (32-36); Mean Platelet Volume 8.7 fl (6.0-9.5); Neutrophil # 7.2 K/mm3 (1.3-6.0); Neutrophil % 77.6 % (42-75.0); Platelet Count 198 K/mm3 (150-450); Red Blood Count 6.17 M/mm3 (4.7-6.0); Red Cell Distribution Width 14.6 % (11.5-14.0); White Blood Count 9.2 K/mm3 (4.0-10.5)
[2017-04-21 11:08] LABS: Prothrombin Time (Patient) 31.4 Seconds (9.4-11.4)
[2017-04-21 11:09] LABS: INR 3.02 INR (0.90-1.10)
[2017-04-21 11:13] LABS: Albumin * 2.8 gm/dl (3.4-5.0); Anion Gap 11.8 mmol/L (6.8-13.8); BUN/Creatinine Ratio 15.6 (9.0-21.6); Bilirubin, Total 0.4 mg/dL (0.0-1.1); Ca. Corrected For Albumin 9.3 mg/dL (8.4-10.2); Calcium * 8.7 mg/dL (7.9-10.9); Carbon Dioxide 27.8 mmol/L (24-32.6); Potassium 3.6 mmol/L (3.4-4.6); Total Protein 7.9 gm/dL (6.2-8.2)
--- OUTSIDE RECORDS SUMMARY | 2017-04-21 11:15 | XMS REPORT | Continuity of Care Document ---
:1955 Author Organization [facility] ([facility]) Address [address] [place] [address] Phone [phone] Care Team Providers Name Role Phone Moo Braswell Primary Care Provider [phone] Source Comments This disclosure is being made pursuant to the Care Everywhere program, applicable federal and state laws, and may not contain all informaitonavailable regarding this patient.[facility] ([facility]) Active Allergies and Adverse Reactions Allergen Noted Date Severity Reactions Comments Aspirin OTHER he states it made him sick to his stomach Current Medications Prescription Sig. Disp. Refills Start Date End Date Status cyclobenzaprine (FLEXERIL) take 10 mg by 03/10/2008 Active 10 mg tablet mouth at bedtime. glimepiride (AMARYL) 4 mg Take 4 mg by mouth Active tablet Every morning. rosuvastatin (CRESTOR) 40 Take 40 mg by Active mg tablet mouth every evening. folic acid 1 mg tablet Take 1 mg by mouth Active daily. metFORMIN (GLUCOPHAGE XR) Take 1,500 mg by Active 500 mg XR tablet mouth every evening with dinner. Active Problems Problem Noted Date Multiple lung nodules 03/28/2013 Overview: Seen in peripheral anterior segment right upper lobe nodule, a calcified right upper lobe nodule, a pleural-based nodule along the right major fissure, and a smaller nodule closer to the hilum. - Stable in appearance, based on chest CT in February 2006 - Previously followed in the [facility]. Hiatal hernia with gastroesophageal reflux 03/28/2013 Hydrocele, unspecified 03/04/2013 Severe chronic obstructive pulmonary disease 03/12/2007 Overview: COPD with FEV1 of 29% in 05/2005. On home oxygen at night at 2L/min. Other diseases of lung, not elsewhere classified 08/28/2006 Seropositive Rheumatoid Arthritis 08/05/2006 Overview: Dx: symmetric small joint polyarthritis, nodular and erosive dx Serologies: Positive Rheumatoid factor (local), Strongly positive anti-CCP (> 219), elevated ESR/CRP Xray: Hand films shows ulnar styloid erosion 2005 Tx: Sulfasalazine- 07/2006- Methotrexate- 07/2006- Hydroxychloroquine- 09/2007- Chronic back pain 08/29/2005 Other and unspecified hyperlipidemia 07/10/2005 Pleural effusion, bilateral 06/19/2005 Overview: Bilateral pleural effusions, right greater than left. S/p diagnostic thoracentesis 05/27. -Fluid analysis: clear yellow, pH 7.31, protein 4.8, LDH 339. -Resolved on last CT scan 2006 Neoplasm of unspecified nature, site unspecified 05/15/2005 Type II or unspecified type diabetes mellitus without mention of 05/15/2005 complication, not stated as uncontrolled Unspecified essential hypertension 05/15/2005 Other specified cardiac dysrhythmias(427.89) 05/15/2005 Other malaise and fatigue 05/15/2005 Shortness of breath 05/15/2005 Resolved Problems Problem Noted Date Resolved Date CELLULITIS NOS 07/10/2005 03/28/2013 Immunizations Name Dates Previously Given Next Due Pneumococcal, unspecified 03/12/2007 Social History Tobacco Use Types Packs/Day Years Used Date Current Every Day Smoker Cigarettes 1.5 40 Smokeless Tobacco: Never Used Tobacco Cessation:Ready to Quit: No; Counseling Given: No Comments: Alcohol Use Drinks/Week oz/Week Comments No Former alcohol use, quit in 1991. Last Filed Vital Signs Vital Sign Reading Time Taken Blood Pressure 117/65 08/05/2013 1:53 PM CDT Pulse 96 08/05/2013 1:53 PM CDT Temperature 36.4 C (97.6 F) 08/05/2013 1:53 PM CDT Respiratory Rate 20 08/05/2013 1:53 PM CDT Height 1.702 m (5' 7") 08/05/2013 1:53 PM CDT Weight 89.359 kg (197 lb) 08/05/2013 1:53 PM CDT Body Mass Index 30.85 08/05/2013 1:53 PM CDT Oxygen Saturation 95% 08/05/2013 1:53 PM CDT Plan of Care Health Maintenance Due Date Last Done Comments HCV Screening 1955 Hepatitis B Vaccine (1 of 3 - Primary 1955 Series) Tdap Vaccine 02/26/1967 MMR Vaccine 02/26/1974 Td Vaccine 02/26/1974 Pneumococcal Vaccine (1 of 1 - PPSV23) 02/26/1975 DIABETIC: Hemoglobin A1C 01/10/2006 07/10/2005, 05/15/2005 Colonoscopy 02/26/2006 Prostate Cancer Screening 02/26/2006 DIABETIC: Cholesterol 05/15/2006 05/15/2005 Diabetic: Hdl 05/15/2006 05/15/2005 Diabetic: Ldl 05/15/2006 05/15/2005 DIABETIC: Microalbumin 05/15/2006 05/15/2005 DIABETIC: Triglycerides 05/15/2006 05/15/2005 DIABETIC: Foot Exam 05/06/2011 DIABETIC: Retinal Eye Exam 05/06/2011 Zoster Vaccine 2016 Influenza Vaccine: Seasonal (#1) 06/23/2016 Results from Last 3 Months Not on file
[2017-04-21 11:52] VITALS: BP 139/73
== END 2017-04-21 12:44 | disposition home or self-care (01) ==
LOC: ER 10:02
DX: M54.2 Cervicalgia (principal); R51 Headache; E11.9 Type 2 diabetes mellitus without complications; Z79.4 Long term (current) use of insulin; M06.9 Rheumatoid arthritis, unspecified; E78.5 Hyperlipidemia, unspecified

== ENCOUNTER 2017-06-30 17:32 | Observation (INO) | payer MEDICARE, MEDICAID ==
[2017-06-30 17:58] LABS: Hematocrit 45.7 % (42.0-52.0); Hemoglobin 15.1 gm/dL (13.5-18.0); Mean Cell Volume 82.2 fl (78-100); Mean Corpuscular Hemoglobin 27.2 pg (27-31); Mean Platelet Volume 8.9 fl (6.0-9.5); Neutrophil # 5.5 K/mm3 (1.3-6.0); Neutrophil % 68.9 % (42-75.0); Platelet Count 188 K/mm3 (150-450); Red Blood Count 5.56 M/mm3 (4.7-6.0); Red Cell Distribution Width 15.3 % (11.5-14.0); White Blood Count 7.9 K/mm3 (4.0-10.5)
[2017-06-30 18:26] LABS: ALT 21 U/L (19-67); AST 17 U/L (0-48); Albumin * 2.9 gm/dl (3.4-5.0); Alkaline Phosphatase * 148 U/L (50-170); Anion Gap 15.7 mmol/L (6.8-13.8); Bilirubin, Total 0.4 mg/dL (0.0-1.1); Blood Urea Nitrogen 14 mg/dL (6-23); CKMB 0.9 ng/mL (0.0-9.0); Ca. Corrected For Albumin 9.4 mg/dL (8.4-10.2); Calcium * 8.8 mg/dL (7.9-10.9); Carbon Dioxide 24.1 mmol/L (24-32.6); Chloride 100 mmol/L (97-106); Glucose * 135 mg/dL (70-110); Potassium 3.8 mmol/L (3.4-4.6); Sodium 136 mmol/L (132-142); Total Protein 7.4 gm/dL (6.2-8.2); Troponin I Less than 0.017 ng/ml (0.00-0.10)
--- NOTE | 2017-06-30 18:47 | ERNOTE ---
Medical Problem HPI - General Chief Complaint: General Assessment Time Seen by Provider: 06/30/17 17:40 Source: patient Exam Limitations: no limitations - Immun/Allergies/Home Medications Immunizations: IMMUNIZATION HX Immunizations Up to Date Yes History of Influenza Vaccine No Hx Pneumococcal Vaccination No Allergies/Adverse Reactions: Allergies aspirin Adverse Reaction (Intermediate, Verified 06/30/17 17:38) Nausea Home Medications: HOME MEDICATIONS Atorvastatin Calcium [Lipitor] 40 mg PO HS 12/18/16 [Last Taken Unknown] Clopidogrel Bisulfate [Plavix] 75 mg PO DAILY 12/18/16 [Last Taken Unknown] Glimepiride [Amaryl] 1 mg PO DAILY 12/18/16 [Last Taken Unknown] HYDROcodone/ACETAMINOPHEN [[place] 5-325] 1 tab PO TID PRN 12/18/16 [Last Taken Unknown] Hydrochlorothiazide [Microzide] 12.5 mg PO DAILY 12/18/16 [Last Taken Unknown] - History of Present History Narrative: Here for shortness of breath, chest discomfort and back and abdominal pain for one day. All symptoms began at 10 am this morning and have been there all day. He is a smoker and admits to a cough but denies any fevers or chills Review of Systems - Review of Systems Constitutional: Present: no symptoms reported EYE: Present: no symptoms reported ENT: Present: no symptoms reported Respiratory: Present: See HPI Cardiology: Present: See HPI Gastrointestinal/Abdominal: Present: abdominal pain - mild diffuse abd pain. Absent: nausea, vomiting Genitourinary: Present: no symptoms reported Musculoskeletal: Present: no symptoms reported Skin: Present: no symptoms reported - Patient's Past Medical History Patient History - Medical: Diabetes Type 2, Rheumatoid Arthritis Patient History - Cardiac/Respiratory: COPD, Hyperlipidemia, Myocardial Infarction, Pneumonia, Peripheral Vascular Disease, TIA Patient History - Cancer: No Hx of Cancer Patient History - Surgical Procedures: Colonoscopy, Other Patient History - Other: None - Family History Mother Family History - Medical: , Diabetes Type 2, Dementia Family History - Cardiac/Respiratory: CVA/Stroke Family History - Cancer: No pertinent family hx Father Family History - Medical: , Diabetes Type 2 Family History - Cardiac/Respiratory: No pertinent hx Family History - Cancer: No pertinent family hx - Social History Living Situations: home Abuse History: No History of abuse Psych History: No pertinent hx Does anyone smoke in the home?: Yes Smoking Status: Current every day smoker Have you smoked in the past 12 months: Yes Alcohol Use: none Drug Use: none - Immunizations Immunizations Up to Date: Yes Hx Pneumococcal Vaccination: No History of Influenza Vaccine: No Physical Exam - Physical Exam General Appearance: Present: alert, anxious, other - thin appearing emaciated male who smells like tobacco. Head Exam: Present: normal inspection Eye Exam: Normal inspection: bilateral, PERRL: bilateral, EOMI: bilateral, Other : bilateral - bilateral arcus senilis Neck: Present: normal inspection Respiratory: Present: no respiratory distress, normal breath sounds, no accessory muscle use, chest nontender, lungs clear Cardiovascular/Chest: Present: regular rate, rhythm, no murmur, normal peripheral pulses Extremity Exam: Present: normal inspection, normal range of motion Neurological Exam: Present: alert, oriented, normal mood/affect, no motor/ sensory deficits Skin Exam: Present: normal color, warm/dry ED Progress - Results and Orders Patient's Lab Results:: I have reviewed the patient's lab results. - Vital Signs Patient's Vital Signs:: I have reviewed the patient's vital signs. Vital Signs: Vital Signs 06/30/17 06/30/17 17:35 18:13 Temperature 37.0 C Pulse Rate 76 59 L Respiratory 16 20 Rate Blood Pressure 135/71 124/68 O2 Sat by Pulse 96 96 Oximetry - EKG EKG: NSR - X-Ray X-Ray #1 X-Ray: chest - CT/Ultrasound CT/Ultrasound Narrative: CT angiogram reveals possible thrombus in the superior vena cava - Progress/Reassessment Chief Complaint: General Assessment Plan - Plan Plan: Patient's chest discomfort started at 10:00 this morning at this time his cardiac enzymes are negative and I doubt that his chest discomfort is secondary to cardiac etiology. He does have shortness of breath and he is a smoker. This patient's d-dimer is elevated and we proceeded to get a CTA. Patient's CT angiogram reveals a possible thrombus in the superior vena cava. These findings were discussed with the admitting physician Dr. Khushbu Castillo. Patient is to be admitted for SVC thrombus and heparin bolus and drip was initiated in the ER. Departure - Departure Clinical Impression: Superior vena cava thrombosis Disposition: [facility] Condition: Serious
[2017-06-30] MEDS ORDERED: HEPARIN SODIUM,PORCINE 5,000 UNITS/ML VIAL IV ONE (19:26)
[2017-06-30] MEDS ORDERED: HEPARIN SODIUM,PORCINE/D5W 25,000 UNITS/500 ML BAG IV ONE (19:30)
[2017-06-30] MEDS ORDERED: HEPARIN SODIUM,PORCINE 5,000 UNITS/ML VIAL ONE ×2 (19:30→19:39)
[2017-06-30] MEDS ORDERED: HEPARIN SODIUM,PORCINE 10,000 UNITS/ML VIAL ONE (19:39)
[2017-06-30 19:40] LABS: Prothrombin Time (Patient) 23.3 Seconds (9.4-11.4)
[2017-06-30 19:46] LABS: INR 2.24 INR (0.90-1.10)
[2017-06-30] MEDS: HEPARIN SODIUM,PORCINE/D5W 25,000 UNITS/500 ML BAG IV SCH (19:47)
--- NOTE | 2017-06-30 22:09 | HP ---
Chief Complaint - Chief Complaint Date of Service: 06/30/17 Time of Service: 21:30 Chief Complaint: "Dizziness, Nausea, weakness, back pain.". Source of HPI- Pt; unreliable historian, ER provider report, pt's chart. History of Present Illness: Mr. Hunter is a 62-yr-old WM pt of Dr. Khushbu Castillo with a PMH of: A-fib, CHF, COPD, DM II, HLD, Depressive disorder, Peripheral Artery disease, PVD, TIA, Rheumatoid Athritis & Venous Stasis Dermatitis. He does not appear to be a precise historian in providing chronological events of illness. He states that today since 0800am, "he just felt sick." He felt lightheaded, nauseated and had back pain and this continued for the whole day. He reports chest pain under his LT rib cage but admits that it has "gone on for months." He is unsure if he had the accompanying symptoms of SOB or diaphoresis. He denies chest pain with inspiration and expiration. He also denies fever and chills. He was afraid that his symptoms may be related to a heart attack and therefore chose to come to the [facility] ER. During evaluation at the ED, he was found to have an elevated D- dimer of 1.00 and a follow-up CTA did not show any Pulmonary Embolism, but there was concern for a Superior Vena Cava (SVC) thrombus. His lab-work was otherwise mostly unremarkable and the CXR did not have any acute findings. He was started on anticoagulation with Heparin drip at the ED. He will be admitted under observation status. - Patient's Past Medical History Patient History - Medical: Diabetes Type 2, Rheumatoid Arthritis, Other - PVD, TIA, Venous stasis. Patient History - Cardiac/Respiratory: CHF, COPD, Hyperlipidemia, Myocardial Infarction, Pneumonia, Peripheral Vascular Disease, TIA Patient History - Cancer: No Hx of Cancer Patient History - Surgical Procedures: Colonoscopy, Other Patient History - Other: None - Family History Mother Family History - Medical: , Alzheimer's Disease, Diabetes Type 2, Dementia Family History - Cardiac/Respiratory: CVA/Stroke Family History - Cancer: No pertinent family hx Father Family History - Medical: , Diabetes Type 2 Family History - Cardiac/Respiratory: Myocardial Infarction Family History - Cancer: No pertinent family hx - Social History Living Situations: home Abuse History: No History of abuse Psych History: No pertinent hx Does anyone smoke in the home?: Yes Smoking Status: Current every day smoker Have you smoked in the past 12 months: Yes Do you dip or chew tobacco: No Smoking Start Date: 06/30/74 Smoking Stop Date: 06/30/17 Patient requests Smoking Cessation Consult: No Initiate information on Smoking Cessation: No Alcohol Use: none Drug Use: none - Immunizations Immunizations Up to Date: Yes Hx Pneumococcal Vaccination: No History of Influenza Vaccine: No Review Of Systems (GEN) - Review of Systems Generalized/Overall Review: Absent: Weakness, Chills, Fever, Malaise, Diaphoresis EENTM: Absent: Eye Pain, Blurred Vision, Tearing, Double Vision Respiratory: Absent: Cough, Shortness of Breath, Orthopnea Cardiac: Present: Chest Pain. Absent: Edema, Palpitations, Syncope Abdominal: Present: Nausea. Absent: Vomiting, Hematemesis, Abdominal Pain, Diarrhea Genitourinary: Absent: Burning, Itching, Urgency, Frequency Musculoskeletal: Present: Joint Pain, Back Pain. Absent: Joint Swelling Neurological: Absent: Headache, Anxiety Skin: Absent: Dryness, Lesions Endocrine: Present: Intolerance to Cold. Absent: Intolerance to Heat, Increased Hunger, Increased Thirst Misc: All systems neg except as marked Allergies/Adverse Reactions: Allergies Allergy/AdvReac Type Severity Reaction Status Date / Time aspirin AdvReac Intermediate Nausea Verified 06/30/17 17:38 Home Medications: HOME MEDICATIONS Atorvastatin Calcium [Lipitor] 40 mg PO HS 12/18/16 [Last Taken Unknown] Clopidogrel Bisulfate [Plavix] 75 mg PO DAILY 12/18/16 [Last Taken Unknown] HYDROcodone/ACETAMINOPHEN [[place] 5-325] 1 tab PO TID PRN 12/18/16 [Last Taken Unknown] Hydrochlorothiazide [Microzide] 12.5 mg PO DAILY 12/18/16 [Last Taken Unknown] Amiodarone HCl [Cordarone] 200 mg PO DAILY 06/30/17 [Last Taken Unknown] Cyclobenzaprine HCl [Flexeril] 10 mg PO TID 06/30/17 [Last Taken Unknown] Potassium Chloride 20 meq PO DAILY 06/30/17 [Last Taken Unknown] Rosuvastatin Calcium 40 mg PO HS 06/30/17 [Last Taken Unknown] Warfarin Sodium 7.5 mg PO 06/30/17 [Last Taken Unknown] Warfarin Sodium [Jantoven] 5 mg PO DAILY 06/30/17 [Last Taken Unknown] Exam - Exam Vital Signs: Vital Signs - Last Taken Temp 36.5 C 06/30/17 20:29 Pulse 69 06/30/17 20:29 Resp 16 06/30/17 20:29 BP 135/78 06/30/17 20:29 Pulse Ox 96 06/30/17 20:29 Constitutional: Present: Alert, Oriented x3, Cooperative, No distress ENT Exam: Present: normal ENT inspection, hearing grossly normal. Absent: nasal drainage, pharyngeal erythema Eye Exam: bilateral eye: normal inspection, PERRL Neck: Present: full range of motion, supple, normal inspection Back Exam: Present: normal inspection Breasts: Present: Exam deferred Respiratory: Present: decreased breath sounds, No rales, No wheezing Cardiovascular/Chest: Present: regular rate, rhythm, no chest tenderness, no edema Abdomen: Present: Normal bowel sounds, soft, nontender /Rectal: Present: Exam deferred Extremity: Present: normal range of motion, non-tender, normal inspection Skin Exam: Present: warm/dry, no cyanosis Lymphatic: Present: no adenopathy Neurologic: Present: no motor/sensory deficits, alert, normal mood/affect, oriented x 3 Appearance: Present: appropriate appearance, appropriate insight Eye contact: Present: cooperative, good eye contact, normal speech Thoughts: Present: normal thought pattern, no apparent hallucination Diagnostic Studies: Laboratory Results WBC 7.9 K/mm3 (4.0-10.5) 06/30/17 17:56 RBC 5.56 M/mm3 (4.7-6.0) 06/30/17 17:56 Hgb 15.1 gm/dL (13.5-18.0) 06/30/17 17:56 Hct 45.7 % (42.0-52.0) 06/30/17 17:56 MCV 82.2 fl (78-100) 06/30/17 17:56 MCH 27.2 pg (27-31) 06/30/17 17:56 MCHC 33.0 g/dl (32-36) 06/30/17 17:56 RDW 15.3 % (11.5-14.0) H 06/30/17 17:56 Plt Count 188 K/mm3 (150-450) 06/30/17 17:56 MPV 8.9 fl (6.0-9.5) 06/30/17 17:56 Immature Gran % (Auto) 0.50 % (0.001-0.429) H 06/30/17 17:56 Immature Gran # (Auto) 0.04 K/mm3 (0.000-0.0310) H 06/30/17 17:56 Neutrophils % 68.9 % (42-75.0) 06/30/17 17:56 Lymphocytes % 21.8 % (20-51) 06/30/17 17:56 Monocytes % 6.7 % (0.0-9) 06/30/17 17:56 Eosinophils % 1.6 % (0.0-3.0) 06/30/17 17:56 Basophils % 0.5 % (0.0-1.0) 06/30/17 17:56 Nucleated RBC % 0.0 k/mm3 (0-1) 06/30/17 17:56 Neutrophils # 5.5 K/mm3 (1.3-6.0) 06/30/17 17:56 Lymphocytes # 1.7 k/mm3 (1.5-3.5) 06/30/17 17:56 Monocytes # 0.5 k/mm3 (0.0-1.0) 06/30/17 17:56 Eosinophils # 0.1 k/mm3 (0.0-0.7) 06/30/17 17:56 Absolute Basophils 0.0 k/mm3 (0.0-0.1) 06/30/17 17:56 PT 23.3 Seconds (9.4-11.4) H 06/30/17 19:28 INR (Anticoag Therapy) 2.24 INR (0.90-1.10) H 06/30/17 19:28 PTT (Kirit) 38.0 Seconds (24-32) H 06/30/17 19:28 D-Dimer 1.00 mg/L (0.19-0.49) H 06/30/17 17:56 Sodium 136 mmol/L (132-142) 06/30/17 17:56 Plasma Sodium 137 mmol/L (130-142) 06/30/17 17:56 Potassium 3.8 mmol/L (3.4-4.6) 06/30/17 17:56 Chloride 100 mmol/L (97-106) 06/30/17 17:56 Carbon Dioxide 24.1 mmol/L (24-32.6) 06/30/17 17:56 Anion Gap 15.7 mmol/L (6.8-13.8) H 06/30/17 17:56 BUN 14 mg/dL (6-23) 06/30/17 17:56 Creatinine 1.17 mg/dL (0.4-1.4) 06/30/17 17:56 Est GFR (Non-Af Amer) 67 mL/min (60-130) 06/30/17 17:56 BUN/Creatinine Ratio 12.0 (9.0-21.6) 06/30/17 17:56 Random Glucose 135 mg/dL (70-110) H 06/30/17 17:56 Calcium 8.8 mg/dL (7.9-10.9) 06/30/17 17:56 Calcium Adj for Albumin 9.4 mg/dL (8.4-10.2) 06/30/17 17:56 Total Bilirubin 0.4 mg/dL (0.0-1.1) 06/30/17 17:56 AST 17 U/L (0-48) 06/30/17 17:56 ALT 21 U/L (19-67) 06/30/17 17:56 Alkaline Phosphatase 148 U/L (50-170) 06/30/17 17:56 CK-MB (CK-2) 0.9 ng/mL (0.0-9.0) 06/30/17 17:56 Troponin I Less than 0.017 ng/ml (0.00-0.10) 06/30/17 17:56 B-Natriuretic Peptide 352 pg/mL (5-175) H 06/30/17 18:03 Total Protein 7.4 gm/dL (6.2-8.2) 06/30/17 17:56 Albumin 2.9 gm/dl (3.4-5.0) L 06/30/17 17:56 Assessment/Plan - Assessment/Plan (1) Superior vena cava thrombosis Assessment: Mr. Hunter's CTA ruled out Pulmonary Embolism, however, there were concerns for SVC thrombus which may require additional imaging to rule this out also. He lacks the presentation of dyspnea, distention of neck veins, chest pain, edema on face or upper extremities. Two set of troponin were negative. His C/C was nausea, dizziness and lightheadedness and do not seem to have any correlation to a thrombus in the SVC, but since this was a possible finding, he may require additional testing known as Venography which is the gold standard of detection of SVC obstruction and is the most conclusive test for identifying an isolated thrombus of the SVC. Will continue anticoagulation with heparin drip & PT/PTT monitoring for therapeutic ranges until SVC thrombus is ruled out. He will remain on telemetry monitoring. Problem: Acute (2) Costochondritis Assessment: Will provide topical Analgestics. Problem: Chronic (3) CHF (congestive heart failure) Problem: Chronic (4) COPD (chronic obstructive pulmonary disease) Problem: Chronic (5) A-fib Problem: Chronic Qualifiers: Atrial fibrillation type: paroxysmal Qualified Code(s): I48.0 - Paroxysmal atrial fibrillation
[2017-06-30] MEDS ORDERED: HYDROcodone/ACETAMINOPHEN 1 EACH TABLET PO PRN (23:30)
[2017-07-01 04:27] LABS: INR 2.57 INR (0.90-1.10); Prothrombin Time (Patient) 26.7 Seconds (9.4-11.4)
[2017-07-01 04:28] LABS: Partial Thrombolplastin Time Greater than 124.0 Seconds (24-32)
[2017-07-01] MEDS: HEPARIN SODIUM,PORCINE/D5W 25,000 UNITS/500 ML BAG IV SCH (07:08)
[2017-07-01] MEDS ORDERED: POTASSIUM CHLORIDE 20 MEQ TABLET.SA PO SCH (09:00)
[2017-07-01] MEDS ORDERED: CYCLOBENZAPRINE HCL 10 MG TABLET PO SCH (09:00)
[2017-07-01] MEDS ORDERED: POTASSIUM CHLORIDE 10 MEQ TABLET.SA PO SCH (09:00)
[2017-07-01] MEDS ORDERED: HYDROCHLOROTHIAZIDE 12.5 MG CAPSULE PO SCH (09:00)
[2017-07-01] MEDS ORDERED: AMIODARONE HCL 200 MG TABLET PO SCH (09:00)
[2017-07-01] MEDS ORDERED: CLOPIDOGREL BISULFATE 75 MG TABLET PO SCH (09:00)
--- NOTE | 2017-07-01 09:20 | DS ---
(1) Fatigue Problem: Chronic (2) Daytime sleepiness Problem: Chronic (3) Elevated d-dimer Problem: Acute Description of Stay: ADMISSION DATE: 06/30/2017 DISCHARGE DATE: 07/01/2017 ADMISSION HPI by GORDON Coe: Mr. Hunter is a 62-yr-old WM pt of Dr. Khushbu Castillo with a PMH of: A-fib, CHF, COPD, DM II, HLD, Depressive disorder, Peripheral Artery disease, PVD, TIA, Rheumatoid Athritis & Venous Stasis Dermatitis. He does not appear to be a precise historian in providing chronological events of illness. He states that today since 0800am, "he just felt sick." He felt lightheaded, nauseated and had back pain and this continued for the whole day. He reports chest pain under his LT rib cage but admits that it has "gone on for months." He is unsure if he had the accompanying symptoms of SOB or diaphoresis. He denies chest pain with inspiration and expiration. He also denies fever and chills. He was afraid that his symptoms may be related to a heart attack and therefore chose to come to the [facility] ER. During evaluation at the ED, he was found to have an elevated D- dimer of 1.00 and a follow-up CTA did not show any Pulmonary Embolism, but there was concern for a Superior Vena Cava (SVC) thrombus. His lab-work was otherwise mostly unremarkable and the CXR did not have any acute findings. He was started on anticoagulation with Heparin drip at the ED. He will be admitted under observation status. HOSPITAL COURSE: The patient presented to the emergency department with complaints of nausea, fatigue, complains of having no energy and sleeping throughout the day. While the patient was in the emergency department undergoing further workup for these nonspecific complaints, a d-dimer was ordered which was elevated at 1.00. A CTA of the chest was then completed which was interpreted by our radiologist as a possible SVC thrombus. Unfortunately, when I discussed this case with the ED physician and our SANE RN hospitalist, I was not reminded that this patient is already anticoagulated for A.fib and that his INR is therapeutic. I was not made aware of this until I saw the patient the following AM, at which time I discontinued the patient's heparin gtt. I discussed and reviewed the CTA findings with our radiologist, Dr. Gonzalez and although he cannot confirm that there is not an SVC thrombus, he thinks what we are seeing in the SVC is likely flow artifact. Either way, the treatment will be anticoagulation, which the patient is already on and is already therapeutic. For the patient's fatigue and daytime sleepiness, I am arranging an outpatient sleep study. Patient stable for discharge. FOLLOW-UP APPOINTMENTS: -Follow-up with [facility] in [facility] on 07/21/2017 @ 9:00AM -Follow-up with Dr. Castillo only if needed. Otherwise, keep routine follow-up appointment as previously scheduled. -Dr. Castillo's office will call the patient and call his [facility] to let them know when the sleep study has been scheduled NEW OR CHANGED MEDICATIONS: NONE DISCONTINUED MEDICATIONS: NONE RADIOLOGY REPORTS: PA and lateral chest x-ray on 06/30/2017 showed: There are emphysematous changes. There are changes of underlying fibrosis. This is unchanged. There are no focal infiltrates or effusions. There is no pneumothorax. IMPRESSION: Emphysema and pulmonary fibrosis not significantly changed. No acute cardiopulmonary disease otherwise identified. CTA of the chest on 03/30/2017 showed: Bolus timing is suboptimal but exam is adequate for diagnostic purposes. There are no intraluminal filling defects to suggest thrombus PE. There are atherosclerotic calcifications including coronary artery calcifications. There is no pericardial effusion. There are no significant pleural effusions. There is extensive emphysema. There are granulomatous calcifications. There is some peripheral fibrosis. There is a filling defect within the superior vena cava which may be flow artifact SVC thrombus cannot be completely excluded. Correlation with any recent instrumentation as necessary. IMPRESSION: No PE. SVC filling defect that may be flow artifact but SVC thrombus cannot be excluded. Procedures Performed: none Results and Findings: Laboratory Tests 06/30/17 06/30/17 06/30/17 17:56 17:56 18:03 INR (Anticoag Therapy) D-Dimer 1.00 H Troponin I Less than 0.017 B-Natriuretic Peptide 352 H 06/30/17 07/01/17 07/01/17 19:28 01:35 03:28 INR (Anticoag Therapy) 2.24 H 2.57 H D-Dimer Troponin I Less than 0.017 B-Natriuretic Peptide Discharge Disposition: Home self care - Resume [facility] on discharge Disposition: Home self-care Condition: Stable Discharge Activity: Activity as tolerated Discharge Diet: Other - Heart healthy diet Problem Oriented Discharge Instructions to Patient/Family: Venous Thromboembolism Additional Patient Instructions (free text): TCM appointment at discharge. Call Valentina at x [phone]. -Please resume HHC at discharge -Follow-up with Dr. Castillo only if needed. Otherwise, keep routine follow-up appointment as previous scheduled. -Follow-up with [facility] in [facility] on 07/21/2017 @ 9:00AM -Dr. Castillo's office will call the patient and call his [facility] to let them know when the sleep study has been scheduled Complete Home Medications List: Complete Home Medication List: Clopidogrel Bisulfate [Plavix] 75 mg PO DAILY 12/18/16 Hydrochlorothiazide [Microzide] 12.5 mg PO DAILY 12/18/16 Amiodarone HCl [Cordarone] 200 mg PO DAILY 06/30/17 Cyclobenzaprine HCl [Flexeril] 10 mg PO TID PRN 06/30/17 Potassium Chloride 20 meq PO DAILY 06/30/17 Rosuvastatin Calcium 40 mg PO HS 06/30/17 HYDROcodone/ACETAMINOPHEN [Hydrocodon-Acetaminoph 7.5-325] 1 each PO Q6H PRN 08/09 Sertraline HCl [Zoloft] 100 mg PO DAILY 07/01/17 Warfarin Sodium [Coumadin] 2.5 mg PO Th@1700 tablet 07/01/17 Warfarin Sodium [Coumadin] 5 mg PO [id number]@1700 tablet 07/01/17
[2017-07-01 10:28] VITALS: BP 148/63
[2017-07-01] MEDS ORDERED: WARFARIN SODIUM 5 MG TABLET PO SCH (17:00)
[2017-07-01] MEDS ORDERED: ROSUVASTATIN CALCIUM 20 MG TABLET PO SCH (21:00)
[2017-07-01] MEDS ORDERED: ATORVASTATIN CALCIUM 40 MG TABLET PO SCH (21:00)
[2017-07-02] MEDS ORDERED: WARFARIN SODIUM 2.5 MG TABLET PO SCH (17:00)
== END 2017-07-01 13:00 | disposition home health service (06) ==
LOC: ER 17:32 → MS 19:41
PROVIDERS: ADMIT Internal Medicine; ATTEND Internal Medicine
DX: R53.83 Other fatigue (principal); R78.89 Finding of other specified substances, not normally found in blood; R40.0 Somnolence; I48.2 Chronic atrial fibrillation; Z79.01 Long term (current) use of anticoagulants; M94.0 Chondrocostal junction syndrome [Tietze]; I50.9 Heart failure, unspecified; I73.9 Peripheral vascular disease, unspecified; I87.8 Other specified disorders of veins; E11.620 Type 2 diabetes mellitus with diabetic dermatitis; J44.9 Chronic obstructive pulmonary disease, unspecified; F17.210 Nicotine dependence, cigarettes, uncomplicated; M06.9 Rheumatoid arthritis, unspecified; E78.5 Hyperlipidemia, unspecified
CPT/HCPCS: 36415; 71020; 71275; 80053; 82553; 83880; 84484; 85025; 85379; 85610; 85730; 93005; 96365; 96375; 99284; G0378

== ENCOUNTER 2017-08-10 13:12 | Day surgery (SDC) | payer MEDICARE, MEDICAID ==
[2017-08-10 14:03] VITALS: BP 123/76
== END 2017-08-10 13:13 | disposition home or self-care (01) ==
LOC: AMB 13:12
PROVIDERS: ATTEND Ophthalmology
PROC: 085K3ZZ Destruction of Left Lens, Percutaneous Approach (ICD-10-PCS; principal; 2017-08-10 13:30)
DX: H26.492 Other secondary cataract, left eye (principal); J44.9 Chronic obstructive pulmonary disease, unspecified; E11.9 Type 2 diabetes mellitus without complications; E78.00 Pure hypercholesterolemia, unspecified; F17.200 Nicotine dependence, unspecified, uncomplicated; Z68.25 Body mass index [BMI] 25.0-25.9, adult

== ENCOUNTER 2017-11-20 10:22 | Inpatient (IN) | payer MEDICARE ==
--- NOTE | 2017-11-20 11:07 | ERNOTE ---
Medical Problem HPI - Narrative Date of Service: 11/20/17 - General Chief Complaint: General Assessment Time Seen by Provider: 11/20/17 11:05 Source: patient, family, EMS notes reviewed, other - patient was seen in ED 2 days prior and examined for possible fracture - Immun/Allergies/Home Medications Immunizations: IMMUNIZATION HX Immunizations Up to Date Yes History of Influenza Vaccine No Hx Pneumococcal Vaccination No Allergies/Adverse Reactions: Allergies aspirin Adverse Reaction (Intermediate, Verified 11/20/17 10:33) Nausea Home Medications: HOME MEDICATIONS Hydrochlorothiazide [Microzide] 12.5 mg PO DAILY 12/18/16 [Last Taken Unknown] Potassium Chloride 20 meq PO DAILY 06/30/17 [Last Taken Unknown] HYDROcodone/ACETAMINOPHEN [Hydrocodone-Acetamin 7.5-325] 1 each PO Q6H PRN 07/01 [Last Taken Unknown] Warfarin Sodium [Coumadin] 5 mg PO DAILY 11/18/17 [Last Taken Unknown] Amiodarone HCl [Cordarone] 200 mg PO DAILY 11/20/17 [Last Taken Unknown] Cholecalciferol (Vitamin D3) [Vitamin D3] 2,000 unit PO DAILY 11/20/17 [Last Taken Unknown] Clopidogrel Bisulfate [Plavix] 75 mg PO DAILY 11/20/17 [Last Taken Unknown] Rosuvastatin Calcium 40 mg PO HS 11/20/17 [Last Taken Unknown] Sertraline HCl [Zoloft] 100 mg PO DAILY 11/20/17 [Last Taken Unknown] metFORMIN HCL [Metformin HCl ER] 500 mg PO DAILY 11/20/17 [Last Taken Unknown] - History of Present History Narrative: Patient is a 62 yo male here via EMS, found down on floor after falling out of chair. Patient was confused and complaining of severe right hip pain. Pateint states he lives with a roommate but she can no longer care for him. He is unkempt, and severe bruising on entire side of body. He denies chest pain but has mild shortness of breath and requiring oxygen support. per EMS his initial pulse oximetry was 80% and this improved on 2 liters via nasal canula. Date (Duration): 11/20/17 Time (Timing): 09:00 Timing: getting worse Severity: moderate Modifying Factors - (Improves): Present: other - inability to care for self, unsafe at home unable to walk independently Review of Systems - Narrative Narrative: Patient here from home with via EMS sent by home health, patient is unable to ambulate and he right groin is hurting more. He was evaluated previously in ED and no fractures were identified. Pt has known CODP, DMII, CHF, hx of atrial fibrillation and is a chronic alcoholic. - Review of Systems Constitutional: Present: decreased activity level, other - ROS is difficult due to Altered mental status, and is difficult to understand EYE: Present: no symptoms reported Respiratory: Present: shortness of breath, wheezing Cardiology: Absent: chest pain, palpitations Genitourinary: Present: decreased urinary output, other - hx of incontinence Musculoskeletal: Present: back pain - right sided back, hip and knee. Skin: Present: dryness, other - severe dystrophic nails and bruising both left and right sacral area Neurological: Present: dizziness/light-headedness, weakness Endocrine: Present: other - glucose was normal per EMS Hematologic/Lymphatic: Present: easy bruising - Narrative Narrative: pmh, psh, sh, allergies, medications, and family hx reviewed. - Patient's Past Medical History Patient History - Medical: Diabetes Type 2, Rheumatoid Arthritis, Other - Alcholism Patient History - Cardiac/Respiratory: CHF, COPD, Hyperlipidemia, Myocardial Infarction, Pneumonia, Peripheral Vascular Disease, TIA Patient History - Cancer: No Hx of Cancer Patient History - Surgical Procedures: Colonoscopy, Other Patient History - Other: None - Family History Mother Family History - Medical: , Alzheimer's Disease, Diabetes Type 2, Dementia Family History - Cardiac/Respiratory: CVA/Stroke Family History - Cancer: No pertinent family hx Father Family History - Medical: , Diabetes Type 2 Family History - Cardiac/Respiratory: Myocardial Infarction Family History - Cancer: No pertinent family hx - Social History Abuse History: No History of abuse - abuses alcohol. , Hx of Substance Use Psych History: No pertinent hx - Immunizations Immunizations Up to Date: Yes Hx Pneumococcal Vaccination: No History of Influenza Vaccine: No Physical Exam - Physical Exam General Appearance: Present: moderate distress, cachetic Head Exam: Present: normal inspection. Absent: active bleeding Eye Exam: Normal inspection: bilateral, PERRL: bilateral, EOMI: bilateral Ears, Nose, Throat: Present: hearing decreased, dry mucous membranes Neck: Present: normal inspection, nontender Respiratory: Present: respiratory distress Cardiovascular/Chest: Present: normal peripheral pulses, irregularly irregular, systolic murmur Gastrointestinal/Abdominal: Present: nontender, no organomegaly Rectal Exam: Present: deferred Male Genitals Exam: Present: deferred Back Exam: Present: vertebral tenderness - right lumbar lower spine, right hip , right knee pain Extremity Exam: Present: decreased range of motion, other - severe bruising right knee, bruised pelvis, right flank and left pelvis. Neurological Exam: Present: motor weakness, disoriented to time, disoriented to situation Skin Exam: Present: skin rash, other - dryness. ED Progress - Results and Orders Patient's Lab Results:: I have reviewed the patient's lab results. Results and Orders: Laboratory Tests 09/29/17 11/18/17 11/19/17 09:35 21:52 01:07 Hgb 14.1 7.7 L* D 8.0 L 11/20/17 11:00 Hgb 8.9 L severe drop of hemoglobin Laboratory Tests 11/20/17 11/20/17 11/20/17 11:00 11:00 14:11 WBC 12.9 H RBC 3.44 L MCV 84.3 MCH 25.9 L MCHC 30.7 L RDW 16.9 H Plt Count 344 MPV 8.3 Immature Gran % (Auto) 0.60 H Immature Gran # (Auto) 0.08 H Neutrophils % 86.8 H Lymphocytes % 5.9 L Monocytes % 6.3 Eosinophils % 0.2 Basophils % 0.2 Nucleated RBC % 0.0 Neutrophils # 11.2 H Lymphocytes # 0.8 L Sodium 139 Plasma Sodium 140 Potassium 3.8 Chloride 103 Carbon Dioxide 28.8 Anion Gap 11.0 BUN 24 H Creatinine 1.32 Est GFR (Non-Af Amer) 59 L BUN/Creatinine Ratio 18.2 Random Glucose 154 H Calcium 8.6 Calcium Adj for Albumin 9.6 Total Bilirubin 1.9 H AST 67 H ALT 24 Alkaline Phosphatase 121 Total Protein 6.7 Albumin 2.4 L Amylase 26 Lipase 69 L Urine Color Dark yellow Urine Appearance Cloudy Urine pH 6.0 Ur Specific [place] 1.025 Urine Protein 100 H Urine Glucose (UA) Negative Urine Ketones Negative Urine Blood 250 H Urine Nitrate Negative Urine Bilirubin Negative Prot Sulfosalicylic Acd 3+ H Urine Urobilinogen >=8.0 H Ur Leukocyte Esterase Negative Urine RBC 5-10 H Urine WBC 0-5 Ur Epithelial Cells 0-5 Amorphous Sediment Moderate - 2+ H Urine Bacteria 1+ H Ethyl Alcohol Less than 3.0 - Vital Signs Patient's Vital Signs:: I have reviewed the patient's vital signs. Vital Signs: Vital Signs 11/20/17 10:26 Temperature 37.0 C Pulse Rate 91 Respiratory 20 Rate Blood Pressure 94/53 O2 Sat by Pulse 95 Oximetry - EKG EKG: NSR, atrial fibrillation, other - old Lateral NC and hx of CHF EKG read: Interp. by me EKG Comments: nsr with pvc's, , IRBBB, RATE OF 89 , NO acute stemi, old lateral NC compared 06/30/2017 - CT/Ultrasound CT/Ultrasound Narrative: CT OF ABD / PELVIS : [facility] PATIENT RADIOLOGY STUDY REPORT Patient Patient Name:LINDSEY CARTER Date: 1955 Sex: M Order Number: [id number] Unique Exam ID: [id number] Exam Requested: PELVIS W/O - CT Pelvis W/O Date Scheduled: 11-20-2017 03:08 PM Study Priority: Requesting Service: Requesting Physician: Berenice Bonner Reason for Exam: RULE OUT PELVIS FRACTURE DUE TO TRAUMA Radiological Report : [facility] [address] - [place] [address] NAME: LINDSEY CARTER : 1955 MR #: [id number] CC: Berenice Bonner DO LOC: [facility] DATE: X-RAY REPORT [id number] CT/CT Pelvis W/O Exam Date: 11/20/2017 15:08 Ordering Physician: Berenice Bonner HISTORY/INDICATION: 62 years old Male RULE OUT PELVIS FRACTURE DUE TO TRAUMA TECHNIQUE: Multiple noncontrast axial CT images of the pelvis were obtained. Coronal and sagittal reconstructions were also submitted for interpretation. COMPARISONS: Patient has a previous contrast enhanced CT of the abdomen and pelvis from 06/03/[address] Pelvis W/O The bony pelvis appears to be intact without definable fracture lucency. There is a fracture of the right L4 transverse process without significant displacement seen best on series 3 image 3 which appears to be acute. Patient has bilateral L5 spondylolysis which appears to be stable and chronic. There is no evidence for dislocation. There is a large subcutaneous hyperdense mass, centered at the right gluteal/lower back region seen best on series 3 image 15, measuring approximately 21.7 cm transverse by 3.3 cm in thickness, by at least 8.7 cm in longitudinal dimension, with secondary areas of hyperdense fluid collection seen just lateral to the right gluteus medias muscle on series 5 image 26, measuring approximately 13 cm in length by 3.6 cm in thickness. In addition, there is a intramuscular mass in the left iliopsoas, seen best on series 3 image 22 which measures approximately 6 cm AP by 3 cm transverse by 9 cm longitudinal with soft tissue windowing suggesting a potential fluid/fluid layering effect within the fluid collection. Visualized portions of the pelvis demonstrates dilation of the rectum , with a large stool ball seen measuring approximately 9 cm across. Consider fecal impaction. Fat-containing left inguinal hernia noted. Patient has enlarged lymph nodes seen bilaterally along the bilateral external iliac chain. Largest lymph node on the right side measuring 2.0 x 3.0 cm, and on the left side measuring 3.2 x 1.4 cm. IMPRESSION: 1. There is no definite signs of pelvic fracture. There is a fracture of the right L4 transverse process. 2. Large right gluteal/low back hyperdense masses most likely hematomas. 3. Additional mass with fluid/fluid level, likely additional hematoma, intramuscular within the left iliopsoas muscle. 4. Clinical correlation is advised. Given that neoplastic process cannot be entirely ruled out in regards to these masses, consider clinical/imaging follow-up to document resolution of the masses. 5. Bilateral external iliac chain lymphadenopathy, nonspecific. Consider reactive lymph node enlargement versus neoplasm such as metastatic disease or lymphoma. 6. Large amount of stool within the rectum. Consider fecal impaction. Electronically signed by Vera Stephen M.D.. Vera Stephen MD Dict: 11/20/17 1509 Typed: 11/20/17 1509/ 11/20/17 1521 11/20/17 1524 - Progress/Reassessment Chief Complaint: General Assessment Progress:: Improved - Transfer of Care Receiving Physician: Too Elkins - may need blood transfusion Pending Results: Labs Expected Disposition: Admit - to service of Dr. Elkins Plan - Plan Plan: Patient disposition was discussed with the Hospitalist Meri LEYVA, Patient has an identified Lumbar fracture, and continued anemia, dehydration and altered mental status. Patient will need to be stablized and evaluation for custodial care placement. Departure Clinical Impression: Lumbar verterbral fracture, traumatic, Abnormality of gait and mobility Anemia Qualifiers: Anemia type: other cause Other causes of anemia: other cause, not classified Qualified Code(s): D64.89 - Other specified anemias Congestive heart failure (CHF) Qualifiers: Congestive heart failure type: unspecified congestive heart failure type Congestive heart failure chronicity: acute on chronic Qualified Code(s): I50.9 - Heart failure, unspecified - Departure Disposition: [facility] Condition: Fair
[2017-11-20 11:09] LABS: Hemoglobin 8.9 gm/dL (13.5-18.0); Mean Cell Volume 84.3 fl (78-100); Mean Corpuscular Hemoglobin 25.9 pg (27-31); Mean Corpuscular Hgb Conc 30.7 g/dl (32-36); Mean Platelet Volume 8.3 fl (6.0-9.5); Neutrophil # 11.2 K/mm3 (1.3-6.0); Neutrophil % 86.8 % (42-75.0); Platelet Count 344 K/mm3 (150-450); Red Blood Count 3.44 M/mm3 (4.7-6.0); Red Cell Distribution Width 16.9 % (11.5-14.0); White Blood Count 12.9 K/mm3 (4.0-10.5)
[2017-11-20 11:28] LABS: ALT 24 U/L (19-67); AST 67 U/L (0-48); Albumin * 2.4 gm/dl (3.4-5.0); Alkaline Phosphatase * 121 U/L (50-170); Amylase * 26 U/L (25-115); BUN/Creatinine Ratio 18.2 (9.0-21.6); Bilirubin, Total 1.9 mg/dL (0.0-1.1); Blood Urea Nitrogen 24 mg/dL (6-23); Ca. Corrected For Albumin 9.6 mg/dL (8.4-10.2); Calcium * 8.6 mg/dL (7.9-10.9); Carbon Dioxide 28.8 mmol/L (24-32.6); Chloride 103 mmol/L (97-106); Glucose * 154 mg/dL (70-110); Lipase 69 U/L (73-393); Potassium 3.8 mmol/L (3.4-4.6); Sodium 139 mmol/L (132-142); Total Protein 6.7 gm/dL (6.2-8.2)
[2017-11-20] MEDS ORDERED: LIDOCAINE HCL 10 APPL CARTRIDGE ONE (14:01)
[2017-11-20 14:22] LABS: Urine Bilirubin Negative (NEGATIVE); Urine Blood 250 /ul (NEGATIVE); Urine Ketone Negative (NEGATIVE); Urine Nitrite Negative (NEGATIVE); Urine Protein 100 mg/dL (NEGATIVE); Urine Specific Gravity 1.025 SP.GR. (1.005-1.030); Urine Urobilinogen >=8.0 EU/dl (NORMAL)
[2017-11-20 14:27] LABS: Urine Amorphous Sediment Moderate - 2+ (NONE-FEW); Urine Appearance Cloudy; Urine Bacteria 1+; Urine Color Dark Yellow; Urine WBC 0-5 /hpf (0-5)
[2017-11-20] MEDS ORDERED: NORMAL SALINE 1,000 ML IV PRN (17:31)
--- NOTE | 2017-11-20 20:44 | HP ---
Chief Complaint - Chief Complaint Date of Service: 11/20/17 - n Time of Service: 20:42 Chief Complaint: 'Fall, bruising, low hgb'. Source of HPI- Pt; unreliable due to AMS, ERP report, Nursing notes. History of Present Illness: Mr. Hunter is a 62-yr-old WM pt of Dr. Khushbu Castillo with a PMH of:A-fib, CHF, Chronic Alcohol use, COPD, DM II, HLD, PAD, PVD, TIA, & Venous Stasis Dermatitis. History is unobtainable from the pt due to Dementia. Pt was being seen by [facility] staff and apparently was found on the floor and the emergency squad was called. Pt found to be Hypoxic in the 's and Oxygen with 4 LNC was applied bringing the Oxygen to > 90%. Pt was reportedly unable to ambulate and complained of worsening pain on his RT groin and that he had fallen on . He was seen at [facility] ER on 11/18/17 due to complaints of not feeling well and that he had fallen several times on his back. CT Abdomen/ Pelvis obtained on that visit showed a large subcutaneous hematoma on the RT gluteal region, but there were no other acute findings. His lab studies showed H /H--> 7.7/24.9,--> 8.0/25.9, INR-->4.74. He was discharged and advised to follow up with PCP. At the ER today, he had RT knee X-ray and RT hip X-rays which did not have any acute findings. The CXR showed Babisilar opacities and Fibrotic changes. The CT of Pelvis showed: Fracture of RT L 4 transverse process, Large RT gluteal hematoma, likely hematoma on the LT iliospoas muscle & bilateral external iliac chain Lymphadenopathy. Laboratory studies showed--> WBC 12,900 with a LT shift, H/H-->8.9/29, Total Bili--> 1.9, otherwise all other labs were unremarkable. Pt's previous H/H on 09/29/17 was 14.1/44. He will be admitted for the gluteal hematoma which may require surgical intervention due to it's size and risk of tissue damage/ from increased pressure of fluid within limited space. - Patient's Past Medical History Patient History - Medical: Diabetes Type 2, Depression, Rheumatoid Arthritis, Other - PAD, PVD, TIA, Patient History - Cardiac/Respiratory: CHF, COPD, Hyperlipidemia, Myocardial Infarction, Pneumonia, Peripheral Vascular Disease, TIA Patient History - Cancer: No Hx of Cancer Patient History - Surgical Procedures: Colonoscopy, Total Knee Replacement - LT Patient History - Other: None - Family History Mother Family History - Medical: , Alzheimer's Disease, Diabetes Type 2, Dementia Family History - Cardiac/Respiratory: CVA/Stroke Family History - Cancer: No pertinent family hx Father Family History - Medical: , Diabetes Type 2 Family History - Cardiac/Respiratory: Myocardial Infarction Family History - Cancer: No pertinent family hx - Social History Living Situations: alone Abuse History: No History of abuse Psych History: No pertinent hx Smoking Status: Former smoker Have you smoked in the past 12 months: No Alcohol Use: heavy Drug Use: none - Immunizations Immunizations Up to Date: Yes Hx Pneumococcal Vaccination: No History of Influenza Vaccine: No Review Of Systems (GEN) - Review of Systems Additional Comments: ROS unobtainable due to AMS. Immunizations: IMMUNIZATION HX Immunizations Up to Date Yes History of Influenza Vaccine No Hx Pneumococcal Vaccination No Allergies/Adverse Reactions: Allergies Allergy/AdvReac Type Severity Reaction Status Date / Time aspirin AdvReac Intermediate Nausea Verified 11/20/17 10:33 Home Medications: HOME MEDICATIONS Hydrochlorothiazide [Microzide] 12.5 mg PO DAILY 12/18/16 [Last Taken Unknown] Potassium Chloride 20 meq PO DAILY 06/30/17 [Last Taken Unknown] HYDROcodone/ACETAMINOPHEN [Hydrocodone-Acetamin 7.5-325] 1 each PO Q6H PRN 07/01 [Last Taken Unknown] Warfarin Sodium [Coumadin] 5 mg PO DAILY 11/18/17 [Last Taken Unknown] Amiodarone HCl [Cordarone] 200 mg PO DAILY 11/20/17 [Last Taken Unknown] Cholecalciferol (Vitamin D3) [Vitamin D3] 2,000 unit PO DAILY 11/20/17 [Last Taken Unknown] Clopidogrel Bisulfate [Plavix] 75 mg PO DAILY 11/20/17 [Last Taken Unknown] Rosuvastatin Calcium 40 mg PO HS 11/20/17 [Last Taken Unknown] Sertraline HCl [Zoloft] 100 mg PO DAILY 11/20/17 [Last Taken Unknown] metFORMIN HCL [Metformin HCl ER] 500 mg PO DAILY 11/20/17 [Last Taken Unknown] Exam - Exam Vital Signs: Vital Signs - Last Taken Temp 36.6 C 11/20/17 19:59 Pulse 90 11/20/17 19:59 Resp 20 11/20/17 19:59 BP 111/68 11/20/17 19:59 Pulse Ox 95 11/20/17 19:59 Constitutional: Present: Alert, Mild distress, Thin and frail ENT Exam: Present: hard of hearing, dry mucous membranes Neck: Present: non-tender Back Exam: Present: normal inspection Respiratory: Present: No rales, No wheezing Cardiovascular/Chest: Present: regular rate, rhythm Peripheral Pulses: femoral (R): 2+, femoral (L): 2+ Abdomen: Present: Normal bowel sounds, soft, nontender /Rectal: Present: Exam deferred Extremity: Absent: normal range of motion, normal capillary refill Skin Exam: Present: other - Scattered bruising, Flaky and discolouration of skin on BLE, Lymphatic: Present: no adenopathy Neurologic: Present: alert, depressed affect Appearance: Present: impaired insight Eye contact: Present: decreased rate of speech, other - slurred speech. Thoughts: Present: incoherent Diagnostic Studies: Abnormal Lab Results 11/20/17 Range/Units 17:44 Crossmatch See Detail Laboratory Results WBC 12.9 K/mm3 (4.0-10.5) H 11/20/17 11:00 RBC 3.44 M/mm3 (4.7-6.0) L 11/20/17 11:00 Hgb 8.9 gm/dL (13.5-18.0) L 11/20/17 11:00 Hct 29.0 % (42.0-52.0) L 11/20/17 11:00 MCV 84.3 fl (78-100) 11/20/17 11:00 MCH 25.9 pg (27-31) L 11/20/17 11:00 MCHC 30.7 g/dl (32-36) L 11/20/17 11:00 RDW 16.9 % (11.5-14.0) H 11/20/17 11:00 Plt Count 344 K/mm3 (150-450) 11/20/17 11:00 MPV 8.3 fl (6.0-9.5) 11/20/17 11:00 Immature Gran % (Auto) 0.60 % (0.001-0.429) H 11/20/17 11:00 Immature Gran # (Auto) 0.08 K/mm3 (0.000-0.0310) H 11/20/17 11:00 Neutrophils % 86.8 % (42-75.0) H 11/20/17 11:00 Lymphocytes % 5.9 % (20-51) L 11/20/17 11:00 Monocytes % 6.3 % (0.0-9) 11/20/17 11:00 Eosinophils % 0.2 % (0.0-3.0) 11/20/17 11:00 Basophils % 0.2 % (0.0-1.0) 11/20/17 11:00 Nucleated RBC % 0.0 k/mm3 (0-1) 11/20/17 11:00 Neutrophils # 11.2 K/mm3 (1.3-6.0) H 11/20/17 11:00 Lymphocytes # 0.8 k/mm3 (1.5-3.5) L 11/20/17 11:00 Monocytes # 0.8 k/mm3 (0.0-1.0) 11/20/17 11:00 Eosinophils # 0.0 k/mm3 (0.0-0.7) 11/20/17 11:00 Absolute Basophils 0.0 k/mm3 (0.0-0.1) 11/20/17 11:00 Sodium 139 mmol/L (132-142) 11/20/17 11:00 Plasma Sodium 140 mmol/L (130-142) 11/20/17 11:00 Potassium 3.8 mmol/L (3.4-4.6) 11/20/17 11:00 Chloride 103 mmol/L (97-106) 11/20/17 11:00 Carbon Dioxide 28.8 mmol/L (24-32.6) 11/20/17 11:00 Anion Gap 11.0 mmol/L (6.8-13.8) 11/20/17 11:00 BUN 24 mg/dL (6-23) H 11/20/17 11:00 Creatinine 1.32 mg/dL (0.4-1.4) 11/20/17 11:00 Est GFR (Non-Af Amer) 59 mL/min (60-130) L 11/20/17 11:00 BUN/Creatinine Ratio 18.2 (9.0-21.6) 11/20/17 11:00 Random Glucose 154 mg/dL (70-110) H 11/20/17 11:00 Calcium 8.6 mg/dL (7.9-10.9) 11/20/17 11:00 Calcium Adj for Albumin 9.6 mg/dL (8.4-10.2) 11/20/17 11:00 Total Bilirubin 1.9 mg/dL (0.0-1.1) H 11/20/17 11:00 AST 67 U/L (0-48) H 11/20/17 11:00 ALT 24 U/L (19-67) 11/20/17 11:00 Alkaline Phosphatase 121 U/L (50-170) 11/20/17 11:00 Total Protein 6.7 gm/dL (6.2-8.2) 11/20/17 11:00 Albumin 2.4 gm/dl (3.4-5.0) L 11/20/17 11:00 Amylase 26 U/L (25-115) 11/20/17 11:00 Lipase 69 U/L (73-393) L 11/20/17 11:00 Urine Color Dark yellow 11/20/17 14:11 Urine Appearance Cloudy 11/20/17 14:11 Urine pH 6.0 pH (5.0-7.0) 11/20/17 14:11 Ur Specific [place] 1.025 SP.GR. (1.005-1.030) 11/20/17 14:11 Urine Protein 100 mg/dL (NEGATIVE) H 11/20/17 14:11 Urine Glucose (UA) Negative mg/dL (NEGATIVE) 11/20/17 14:11 Urine Ketones Negative mg/dL (NEGATIVE) 11/20/17 14:11 Urine Blood 250 /ul (NEGATIVE) H 11/20/17 14:11 Urine Nitrate Negative (NEGATIVE) 11/20/17 14:11 Urine Bilirubin Negative mg/dl (NEGATIVE) 11/20/17 14:11 Prot Sulfosalicylic Acd 3+ mg/dL (0) H 11/20/17 14:11 Urine Urobilinogen >=8.0 EU/dl (NORMAL) H 11/20/17 14:11 Ur Leukocyte Esterase Negative /ul (NEGATIVE) 11/20/17 14:11 Urine RBC 5-10 /hpf (0-5) H 11/20/17 14:11 Urine WBC 0-5 /hpf (0-5) 11/20/17 14:11 Ur Epithelial Cells 0-5 /hpf (0-5) 11/20/17 14:11 Amorphous Sediment Moderate - 2+ (NONE-FEW) H 11/20/17 14:11 Urine Bacteria 1+ (NONE) H 11/20/17 14:11 Urine Culture Comments No culture indicated 11/20/17 14:11 Ethyl Alcohol Less than 3.0 mg/dL (0.0-10.0) 11/20/17 11:00 Blood Type A Positive 11/20/17 17:44 Antibody Screen Negative 11/20/17 17:44 Crossmatch See Detail 11/20/17 17:44 Assessment/Plan - Assessment/Plan (1) Gluteal hematoma Assessment: Pt is a 62 yr-old WM who has presented to the ED twice with reports of falls. Radiographic imaging of the Pelvis did not show any fractures, however there was a large fluid filled mass on the RT gluteal which was thought to be likely a hematoma. Pt has a history of A-fib and chronically on Coumadin for anticoagulation. On his first presentation to the ED, Hemoglobin was found to be 7.7gm/dL and today's was 8.9mg/dL whereas his baseline is normally in the 14s -16 gm/dL. On physical exam, the area on his right gluteal is severely bruised, feels hard to touch and pt experiences tenderness with light touch. His bilateral femoral pulses are palpable with a Doppler. I had concerns about the size of the hematoma, increased risk of tissue ischemia due to compromised circulation caused by increased pressure within an enclosed space and therefore , consulted the Surgeon (Dr. Levy). He agreed and plans to evaluate the pt tomorrow for Schaefer-Vale Syndrome. Due to an impending surgery, will correct pt's INR 3.64 of with 2 units of FFP as Vitamin K may take several days. Will keep pt NPO, hold anticoagulants & Provide IVF hydration. Problem: Acute (2) Anemia Assessment: Anemia is likely due to blood loss from subcutaneous hemorrhage vs GI loss as the first occult stool was negative and no s/s of active bleeding from GI. Received 1 units of PRBC. Anticoagulants on hold. Laboratory Tests 04/21/17 06/30/17 09/29/17 10:53 17:56 09:35 Hgb 16.7 15.1 14.1 11/18/17 11/19/17 11/20/17 21:52 01:07 11:00 Hgb 7.7 L* D 8.0 L 8.9 L Problem: Acute Qualifiers: Anemia type: other cause Other causes of anemia: other cause, not classified Qualified Code(s): D64.89 - Other specified anemias (3) Transverse process fracture of RT L 4 Problem: Acute (4) Constipation Assessment: Large amount of stool seen on CT abd. Will give stimulant laxatives with Dulcolax and Mag citrate. Problem: Acute (5) Discharge planning issues Assessment: Will likely need placement due to inability to ambulate- will have case mgt assist. Will involve PT/OT for strengthening. Problem: Acute (6) CHF (congestive heart failure) Problem: Chronic Qualifiers: Congestive heart failure type: unspecified congestive heart failure type Congestive heart failure chronicity: acute on chronic Qualified Code(s): I50.9 - Heart failure, unspecified (7) COPD (chronic obstructive pulmonary disease) Problem: Chronic (8) PVD (peripheral vascular disease) Problem: Chronic (9) Diabetes Assessment: Accu checks Q 6 while NPO, On Metformin and Amaryl. Problem: Chronic Qualifiers: Diabetes mellitus type: type 2
[2017-11-20] MEDS ORDERED: BISACODYL 10 MG SUPP.RECT RC ONE (21:59)
[2017-11-20] MEDS ORDERED: MAGNESIUM CITRATE 300 ML BTL PO ONE (22:00)
[2017-11-21] MEDS: DEXTROSE 5%-NORMAL SALINE 1,000 ML IV PRN ×2 (01:19→15:38)
[2017-11-21 01:40] LABS: Prothrombin Time (Patient) 36.9 Seconds (9.0-11.0)
[2017-11-21 01:43] LABS: INR 3.64 INR (0.90-1.10)
[2017-11-21 05:54] LABS: Hematocrit 29.1 % (42.0-52.0); Hemoglobin 9.1 gm/dL (13.5-18.0); Mean Cell Volume 82.4 fl (78-100); Mean Corpuscular Hemoglobin 25.8 pg (27-31); Mean Corpuscular Hgb Conc 31.3 g/dl (32-36); Mean Platelet Volume 8.5 fl (6.0-9.5); Neutrophil # 10.8 K/mm3 (1.3-6.0); Neutrophil % 86.2 % (42-75.0); Platelet Count 312 K/mm3 (150-450); Red Blood Count 3.53 M/mm3 (4.7-6.0); Red Cell Distribution Width 17.7 % (11.5-14.0); White Blood Count 12.6 K/mm3 (4.0-10.5)
--- NOTE | 2017-11-21 05:54 | PN ---
Subjective - Date and Time Seen Date: 11/21/17 Time: 05:50 Subjective Narrative: Pt seen this am. Has had several BMs from laxative. Has been NPO. 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 Plan to recheck INR i at 10. inability to ambulate will be a barrier to be discharge home. Will need PT/OT involved and likely placement. No other acute events according to nursing. Objective - Vitals Vitals: Last Vital Signs Temp 36.8 C 11/21/17 03:56 Pulse 92 11/21/17 03:56 Resp 18 11/21/17 03:56 BP 108/77 11/21/17 03:56 Pulse Ox 93 11/21/17 03:56 - Abnormal Lab Findings Abnormal Lab Findings: Abnormal Lab Results 11/20/17 11/21/17 Range/Units 17:44 01:09 PT 36.9 H (9.0-11.0) Seconds INR (Anticoag Therapy) 3.64 H (0.90-1.10) INR Crossmatch See Detail - Exam Constitutional: Present: Alert, Oriented x3, Mild distress, Thin and frail, Looks Older than stated age ENT Exam: Present: normal ENT inspection Neck: Present: non-tender, full range of motion Breasts: Present: Exam deferred Respiratory: Present: No rales, No wheezing Cardiovascular/Chest: Present: normal peripheral pulses, regular rate, rhythm, no chest tenderness Abdomen: Present: Normal bowel sounds, nontender /Rectal: Present: Exam deferred Extremity: Present: non-tender, normal inspection, no pedal edema Skin Exam: Present: warm/dry, other - Scatted bruising, Ecchymosis on RT hip Lymphatic: Present: no adenopathy Neurologic: Present: alert, depressed affect Appearance: Present: disheveled Thoughts: Present: no apparent hallucination Assessment/Plan - Problems/Diagnosis (1) Gluteal hematoma Problem: Acute Narrative: Pt is a 62 yr-old WM who has presented to the ED twice with reports of falls. Radiographic imaging of the Pelvis did not show any fractures, however there was a large fluid filled mass on the RT gluteal which was thought to be likely a hematoma. Pt has a history of A-fib and chronically on Coumadin for anticoagulation. On his first presentation to the ED, Hemoglobin was found to be 7.7gm/dL and today's was 8.9mg/dL whereas his baseline is normally in the 14s -16 gm/dL. On physical exam, the area on his right gluteal is severely bruised, feels hard to touch and pt experiences tenderness with light touch. His bilateral femoral pulses are palpable with a Doppler. I had concerns about the size of the hematoma, increased risk of tissue ischemia due to compromised circulation caused by increased pressure within an enclosed space and therefore , consulted the Surgeon (Dr. Levy). 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 Due to an impending surgery, will correct pt's INR 3.64 of with 2 units of FFP as Vitamin K may take several days. Will keep pt NPO, hold anticoagulants & Provide IVF hydration. (2) Anemia Problem: Acute Qualifiers: Anemia type: other cause Other causes of anemia: other cause, not classified Qualified Code(s): D64.89 - Other specified anemias Narrative: Anemia is likely due to blood loss from subcutaneous hemorrhage vs GI loss as the first occult stool was negative and no s/s of active bleeding from GI. Received 1 units of PRBC. Anticoagulants on hold. (3) Transverse process fracture of RT L 4 Problem: Acute (4) Constipation Problem: Acute Narrative: Large amount of stool seen on CT abd. Will give stimulant laxatives with Dulcolax and Mag citrate. (5) Discharge planning issues Problem: Acute Narrative: Will likely need placement due to inability to ambulate- will have case mgt assist. Will involve PT/OT for strengthening. (6) CHF (congestive heart failure) Problem: Chronic Qualifiers: Congestive heart failure type: unspecified congestive heart failure type Congestive heart failure chronicity: acute on chronic Qualified Code(s): I50.9 - Heart failure, unspecified (7) COPD (chronic obstructive pulmonary disease) Problem: Chronic (8) PVD (peripheral vascular disease) Problem: Chronic (9) Diabetes Problem: Chronic Qualifiers: Diabetes mellitus type: type 2
[2017-11-21 06:16] LABS: Anion Gap 11.4 mmol/L (6.8-13.8); BUN/Creatinine Ratio 21.9 (9.0-21.6); Calcium * 8.2 mg/dL (7.9-10.9); Carbon Dioxide 28.9 mmol/L (24-32.6); Estimated Creat Clear 54.8; Potassium 3.3 mmol/L (3.4-4.6)
[2017-11-21 08:42] LABS: Prothrombin Time (Patient) 18.8 Seconds (9.0-11.0)
[2017-11-21 08:47] LABS: INR 1.87 INR (0.90-1.10)
[2017-11-21] MEDS ORDERED: ceFAZolin SODIUM 1 GM in DEXTROSE 5 % IN WATER 100 ML IV PRN ×2 (08:48)
[2017-11-21] MEDS ORDERED: POTASSIUM CHLORIDE 10 MEQ TABLET.SA PO SCH (09:00)
[2017-11-21] MEDS ORDERED: ceFAZolin SODIUM 1 GM VIAL IV PRN (09:23)
[2017-11-21] MEDS: HYDROCHLOROTHIAZIDE 12.5 MG CAPSULE PO SCH (09:49)
[2017-11-21] MEDS: POTASSIUM CHLORIDE 20 MEQ TABLET.SA PO SCH (09:50)
[2017-11-21] MEDS: CHOLECALCIFEROL 1,000 UNIT CAPSULE PO SCH (09:50)
[2017-11-21] MEDS: AMIODARONE HCL 200 MG TABLET PO SCH (09:50)
[2017-11-21] MEDS: SERTRALINE HCL 100 MG TABLET PO SCH (09:50)
[2017-11-21] MEDS ORDERED: PHYTONADIONE (VIT K1) 5 MG TABLET PO ONE (12:19)
--- NOTE | 2017-11-21 13:26 | CONS ---
[facility] - General Date of Service: 11/21/17 Narrative: This patient has fallen twice recently and has developed a significant hematoma on the right hip/buttock region. I have been asked to rule out a significant Schaefer-Vale injury that might compromise overlying skin. Source: patient, RN/, old records - History of Present Illness Allergies/Adverse Reactions: Allergies aspirin Adverse Reaction (Intermediate, Verified 11/20/17 10:33) Nausea Home Medications: Home Medications Medication Instructions Recorded Last Taken Hydrochlorothiazide [Microzide] 12.5 mg PO DAILY 12/18/16 Unknown Potassium Chloride 20 meq PO DAILY 06/30/17 Unknown HYDROcodone/ACETAMINOPHEN 1 each PO Q6H PRN 07/01/17 Unknown [Hydrocodone-Acetamin 7.5-325] Warfarin Sodium [Coumadin] 5 mg PO DAILY 11/18/17 Unknown Amiodarone HCl [Cordarone] 200 mg PO DAILY 11/20/17 Unknown Cholecalciferol (Vitamin D3) 2,000 unit PO DAILY 11/20/17 Unknown [Vitamin D3] Clopidogrel Bisulfate [Plavix] 75 mg PO DAILY 11/20/17 Unknown Rosuvastatin Calcium 40 mg PO HS 11/20/17 Unknown Sertraline HCl [Zoloft] 100 mg PO DAILY 11/20/17 Unknown metFORMIN HCL [Metformin HCl ER] 500 mg PO DAILY 11/20/17 Unknown - Patient's Past Medical History Patient History - Medical: Diabetes Type 2, Depression, Rheumatoid Arthritis, Other - PAD, PVD, TIA, Patient History - Cardiac/Respiratory: CHF, COPD, Hyperlipidemia, Myocardial Infarction, Pneumonia, Peripheral Vascular Disease, TIA Patient History - Cancer: No Hx of Cancer Patient History - Surgical Procedures: Colonoscopy, Total Knee Replacement - LT Patient History - Other: None - Family History Mother Family History - Medical: , Alzheimer's Disease, Diabetes Type 2, Dementia Family History - Cardiac/Respiratory: CVA/Stroke Family History - Cancer: No pertinent family hx Father Family History - Medical: , Diabetes Type 2 Family History - Cardiac/Respiratory: Myocardial Infarction Family History - Cancer: No pertinent family hx - Social History Living Situations: alone Abuse History: No History of abuse Psych History: No pertinent hx Smoking Status: Former smoker Have you smoked in the past 12 months: No Alcohol Use: heavy Drug Use: none - Immunizations Immunizations Up to Date: Yes Hx Pneumococcal Vaccination: No History of Influenza Vaccine: No Procedures AFTER-CATAR DISCISSION (01/01/15) ARTERIAL BLD GAS MEASURE (06/04/05) CATARAC PHACOEMULS/ASPIR (12/22/11) CLOSURE SKIN & SUBCUTANEOUS NEC (07/01/15) COLONOSCOPY (01/30/10) DESTRUCTION OF LEFT LENS, PERCUTANEOUS APPROACH (08/10/17) ENDOSC POLYPECTOMY OF LG INTEST (01/05/08) EXCIS KNEE SEMILUN CARTL (06/07/09) INSERT LENS AT CATAR EXT (12/22/11) KNEE STRUCTURE DIVISION (06/07/09) NONEXCIS DEBRID OF WOUND, INFECT, OR BURN (02/05/06) Medications - Medications Current Medications: Current Medications Amiodarone HCl (Cordarone) 200 mg PO DAILY SHAD Stop: 12/21/17 09:01 Last Admin: 11/21/17 09:50 Dose: 200 mg Cholecalciferol (Vitamin D) 2,000 unit PO DAILY SHAD Stop: 12/21/17 09:01 Last Admin: 11/21/17 09:50 Dose: 2,000 unit Hydrochlorothiazide (Microzide) 12.5 mg PO DAILY SHAD Stop: 12/21/17 09:01 Last Admin: 11/21/17 09:49 Dose: 12.5 mg Sodium Chloride (Sodium Chloride 0.9%) 1,000 mls @ 125 mls/hr IV .Q8H PRN PRN Reason: HYDRATION Stop: 12/20/17 17:32 Last Infusion: 11/21/17 01:19 Dose: 0 mls/hr Dextrose/Sodium Chloride (Dextrose 5%-0.9% Ns) 1,000 mls @ 75 mls/hr IV .[id number] PRN PRN Reason: HYDRATION Stop: 12/21/17 01:16 Last Admin: 11/21/17 01:19 Dose: 75 mls/hr Metformin HCl (Glucophage Xr) 500 mg PO DAILY SHAD Stop: 12/21/17 09:01 Last Admin: 11/21/17 09:50 Dose: 500 mg Potassium Chloride (K-Dur) 20 meq PO DAILY SHAD Stop: 12/21/17 09:01 Last Admin: 11/21/17 09:50 Dose: 20 meq Sertraline HCl (Zoloft) 100 mg PO DAILY SHAD Stop: 12/21/17 09:01 Last Admin: 11/21/17 09:50 Dose: 100 mg Review of Systems - Review of Systems Musculoskeletal: Present: Other - see hpi Skin: Present: Other - see hpi Physical Examination - Exam Vital Signs: Vital Signs - Last Taken Temp 36.7 C 11/21/17 10:22 Pulse 87 11/21/17 10:22 Resp 18 11/21/17 10:22 BP 113/53 11/21/17 10:22 Pulse Ox 93 11/21/17 10:22 Constitutional: Present: Alert, Cooperative, No distress Skin Exam: Present: other - Fluctuant hematoma right hip/buttock. No significant pressure on overlying skin. Significant surrounding ecchymoses - Assessments/Findings (1) Schaefer Vale lesion Diagnosis(s): This Schaefer Vale injury does not appear to be compromising the overlying skin. I will follow along with you. This is likely to reabsorb of its own accord but may become a chronic fluid cavity at which time intervention may be necessary. Problem: Acute
[2017-11-21] MEDS: HYDROPHILIC OINTMENT 454 APPL JAR TP SCH (21:31)
[2017-11-21] MEDS: ROSUVASTATIN CALCIUM 20 MG TABLET PO SCH (21:32)
[2017-11-22] MEDS: DEXTROSE 5%-NORMAL SALINE 1,000 ML IV PRN ×2 (04:25→19:10)
[2017-11-22 05:44] LABS: Hematocrit 29.9 % (42.0-52.0); Hemoglobin 9.3 gm/dL (13.5-18.0); Mean Corpuscular Hemoglobin 26.1 pg (27-31); Mean Corpuscular Hgb Conc 31.1 g/dl (32-36); Mean Platelet Volume 8.3 fl (6.0-9.5); Neutrophil # 9.8 K/mm3 (1.3-6.0); Neutrophil % 83.7 % (42-75.0); Platelet Count 295 K/mm3 (150-450); Red Blood Count 3.56 M/mm3 (4.7-6.0); White Blood Count 11.7 K/mm3 (4.0-10.5)
[2017-11-22 05:56] LABS: Anion Gap 9.6 mmol/L (6.8-13.8); BUN/Creatinine Ratio 22.1 (9.0-21.6); Calcium * 8.2 mg/dL (7.9-10.9); Carbon Dioxide 27.9 mmol/L (24-32.6); Estimated Creat Clear 66.4; Potassium 3.5 mmol/L (3.4-4.6)
--- NOTE | 2017-11-22 06:08 | PN ---
Subjective - Date and Time Seen Date: 11/22/17 Time: 06:05 Subjective Narrative: Pt examined this am. Has no complaints. Appears very weak. Seen by the Surgeon for evaluation of Schaefer- Vale injury and he did not think he is at risk for tissue damage/ischemia. Unable to ambulate due to weakness. Needs to be eval by PT/OT. No other issues according to nursing. Objective - Vitals Vitals: Last Vital Signs Temp 36.9 C 11/22/17 02:19 Pulse 102 H 11/22/17 02:19 Resp 16 11/22/17 02:19 BP 103/58 11/22/17 02:19 Pulse Ox 94 11/22/17 02:19 - Abnormal Lab Findings Abnormal Lab Findings: Abnormal Lab Results 11/22/17 11/22/17 Range/Units 05:35 05:35 WBC 11.7 H (4.0-10.5) K/mm3 RBC 3.56 L (4.7-6.0) M/mm3 Hgb 9.3 L (13.5-18.0) gm/dL Hct 29.9 L (42.0-52.0) % MCH 26.1 L (27-31) pg MCHC 31.1 L (32-36) g/dl RDW 18.0 H (11.5-14.0) % Immature Gran % (Auto) 0.50 H (0.001-0.429) % Immature Gran # (Auto) 0.06 H (0.000-0.0310) K/mm3 Neutrophils % 83.7 H (42-75.0) % Lymphocytes % 7.0 L (20-51) % Neutrophils # 9.8 H (1.3-6.0) K/mm3 Lymphocytes # 0.8 L (1.5-3.5) k/mm3 BUN 25 H (6-23) mg/dL BUN/Creatinine Ratio 22.1 H (9.0-21.6) Random Glucose 165 H (70-110) mg/dL - Exam Constitutional: Present: Alert, Oriented x3, Cooperative, Thin and frail, Looks Older than stated age ENT Exam: Present: dry mucous membranes Neck: Present: non-tender, full range of motion Respiratory: Present: lungs clear, No rales, No wheezing Cardiovascular/Chest: Present: normal peripheral pulses, regular rate, rhythm Abdomen: Present: Normal bowel sounds, soft, nontender /Rectal: Present: Exam deferred Skin Exam: Present: other - Erythema discolouration and flaky skin on BLE. Lymphatic: Present: no adenopathy Neurologic: Present: alert, depressed affect Appearance: Present: disheveled, impaired insight Eye contact: Present: decreased rate of speech Thoughts: Present: no apparent hallucination Assessment/Plan - Problems/Diagnosis (1) Gluteal hematoma Problem: Acute Narrative: Evaluated by the surgeon- No risk of Schaefer-Vale injury.The hematomas will likely get reabsorbed with time. (2) Anemia Problem: Acute Qualifiers: Anemia type: other cause Other causes of anemia: other cause, not classified Qualified Code(s): D64.89 - Other specified anemias Narrative: Anemia is likely due to blood loss from subcutaneous hemorrhage vs GI loss as the first occult stool was negative and no s/s of active bleeding from GI. Received 1 units of PRBC. Anticoagulants on hold. Laboratory Tests 11/18/17 11/19/17 11/20/17 21:52 01:07 11:00 Hgb 7.7 L* D 8.0 L 8.9 L 11/21/17 11/22/17 05:55 05:35 Hgb 9.1 L 9.3 L (3) Transverse process fracture of RT L 4 Problem: Acute Narrative: Pain control. (4) Constipation Problem: Resolved (5) A-fib Problem: Chronic Narrative: Place on Telemetry monitoring. Normally on anticoagulation with Coumadin, but this was put on hold due to supratherputic INR and following a fall that led to a large gluteal hematoma and Anemia from bleeding. needs discussion about Anticoagulation risk and benefits especially given his increased risks of falls which can cause serious injury such as subdural hematoma and consideration for just aspirin and plavix. (6) Discharge planning issues Problem: Acute Narrative: Needs skilled placement at discharge- inability to walk, weakness and recurrent falls puts him at increased risk for fractures,hematomas and even . (7) CHF (congestive heart failure) Problem: Chronic Qualifiers: Congestive heart failure type: unspecified congestive heart failure type Congestive heart failure chronicity: acute on chronic Qualified Code(s): I50.9 - Heart failure, unspecified (8) COPD (chronic obstructive pulmonary disease) Problem: Chronic (9) PVD (peripheral vascular disease) Problem: Chronic (10) Diabetes Problem: Chronic Qualifiers: Diabetes mellitus type: type 2
[2017-11-22] MEDS: AMIODARONE HCL 200 MG TABLET PO SCH (09:46)
[2017-11-22] MEDS: SERTRALINE HCL 100 MG TABLET PO SCH (09:47)
[2017-11-22] MEDS: POTASSIUM CHLORIDE 20 MEQ TABLET.SA PO SCH (09:47)
[2017-11-22] MEDS: HYDROCHLOROTHIAZIDE 12.5 MG CAPSULE PO SCH (09:47)
[2017-11-22] MEDS: CHOLECALCIFEROL 1,000 UNIT CAPSULE PO SCH (09:47)
--- NOTE | 2017-11-22 10:02 | PN ---
Subjective - Date and Time Seen Date: 11/22/17 Time: 09:59 Subjective Narrative: No new complaints in regards to his hematoma. Objective Objective Narrative: Hematoma stable. No compromise of overlying skin. Ecchymosis continues to spread. - Vitals Vitals: Last Vital Signs Temp 37.0 C 11/22/17 07:03 Pulse 89 11/22/17 07:03 Resp 20 11/22/17 07:03 BP 119/54 11/22/17 07:03 Pulse Ox 95 11/22/17 07:03 - Abnormal Lab Findings Abnormal Lab Findings: Abnormal Lab Results 11/22/17 11/22/17 Range/Units 05:35 05:35 WBC 11.7 H (4.0-10.5) K/mm3 RBC 3.56 L (4.7-6.0) M/mm3 Hgb 9.3 L (13.5-18.0) gm/dL Hct 29.9 L (42.0-52.0) % MCH 26.1 L (27-31) pg MCHC 31.1 L (32-36) g/dl RDW 18.0 H (11.5-14.0) % Immature Gran % (Auto) 0.50 H (0.001-0.429) % Immature Gran # (Auto) 0.06 H (0.000-0.0310) K/mm3 Neutrophils % 83.7 H (42-75.0) % Lymphocytes % 7.0 L (20-51) % Neutrophils # 9.8 H (1.3-6.0) K/mm3 Lymphocytes # 0.8 L (1.5-3.5) k/mm3 BUN 25 H (6-23) mg/dL BUN/Creatinine Ratio 22.1 H (9.0-21.6) Random Glucose 165 H (70-110) mg/dL Assessment/Plan - Problems/Diagnosis (1) Schaefer Vale lesion Problem: Acute Narrative: Continue observation
[2017-11-22] MEDS: HYDROPHILIC OINTMENT 454 APPL JAR TP SCH ×2 (10:26→20:33)
--- NOTE | 2017-11-22 11:31 | PN ---
Progess Note - Interim Narrative: 11/22/17 11:28 I saw and examined this patient on 11/22/2017. agree with the narrative and plan of GORDON Farris. Continue PT and pain control. . He was told that since we stopped his anticoagulation, he is increased risk of clots. Surgery following up for his Schaefer-Vale injury.
[2017-11-22] MEDS: ROSUVASTATIN CALCIUM 20 MG TABLET PO SCH (20:33)
[2017-11-23 05:51] LABS: Hemoglobin 8.7 gm/dL (13.5-18.0); Mean Cell Volume 84.3 fl (78-100); Mean Corpuscular Hemoglobin 25.3 pg (27-31); Mean Platelet Volume 8.7 fl (6.0-9.5); Neutrophil # 7.2 K/mm3 (1.3-6.0); Neutrophil % 83.3 % (42-75.0); Platelet Count 267 K/mm3 (150-450); Red Blood Count 3.44 M/mm3 (4.7-6.0); Red Cell Distribution Width 17.8 % (11.5-14.0); White Blood Count 8.6 K/mm3 (4.0-10.5)
--- NOTE | 2017-11-23 06:22 | PN ---
Subjective - Date and Time Seen Date: 11/23/17 Time: 06:18 Subjective Narrative: Tyshawn seen this am. He is alert in no distress and no complaints. Has not been able to ambulate. Has hx of PVD and venous stasis ulcers on lower extremities seem to be worsening. Will consult Wound care. No other issues overnight. Objective - Vitals Vitals: Last Vital Signs Temp 36.8 C 11/23/17 06:12 Pulse 81 11/23/17 06:12 Resp 19 11/23/17 06:12 BP 115/55 11/23/17 06:12 Pulse Ox 98 11/23/17 06:12 - Abnormal Lab Findings Abnormal Lab Findings: Abnormal Lab Results 11/23/17 Range/Units 05:45 RBC 3.44 L (4.7-6.0) M/mm3 Hgb 8.7 L (13.5-18.0) gm/dL Hct 29.0 L (42.0-52.0) % MCH 25.3 L (27-31) pg MCHC 30.0 L (32-36) g/dl RDW 17.8 H (11.5-14.0) % Immature Gran % (Auto) 0.60 H (0.001-0.429) % Immature Gran # (Auto) 0.05 H (0.000-0.0310) K/mm3 Neutrophils % 83.3 H (42-75.0) % Lymphocytes % 7.9 L (20-51) % Neutrophils # 7.2 H (1.3-6.0) K/mm3 Lymphocytes # 0.7 L (1.5-3.5) k/mm3 - Exam Constitutional: Present: Alert, Oriented x3, Cooperative, No distress, Thin and frail, Looks Older than stated age ENT Exam: Present: normal ENT inspection, muffled/hoarse voice. Absent: nasal congestion, nasal drainage Neck: Present: non-tender, full range of motion Breasts: Present: Exam deferred Respiratory: Present: lungs clear, no accessory muscle use, wheezing, expiration (prolonged), No wheezing Cardiovascular/Chest: Present: normal peripheral pulses, regular rate, rhythm, no chest tenderness, no murmur Abdomen: Present: Normal bowel sounds, soft, nontender /Rectal: Present: Exam deferred Extremity: Present: normal range of motion, non-tender, normal inspection Skin Exam: Present: cool/dry, pallor, other - Ecchymosis on RT hip, scattered bruising, flaky BLE with open areas Lymphatic: Present: no adenopathy Neurologic: Present: no motor/sensory deficits, alert, normal mood/affect Appearance: Present: appropriate appearance, appropriate insight Eye contact: Present: cooperative, good eye contact, normal speech Thoughts: Present: no apparent hallucination Assessment/Plan - Problems/Diagnosis (1) Gluteal hematoma Problem: Acute Narrative: Evaluated by the surgeon- No risk of Schaefer-Vale injury.The hematomas will likely get reabsorbed with time. (2) Anemia Problem: Acute Qualifiers: Anemia type: other cause Other causes of anemia: other cause, not classified Qualified Code(s): D64.89 - Other specified anemias Narrative: Anemia is likely due to blood loss from subcutaneous hemorrhage vs GI loss as the first occult stool was negative and no s/s of active bleeding from GI. Received 1 units of PRBC. Anticoagulants on hold. Laboratory Tests 11/20/17 11/21/17 11/22/17 11:00 05:55 05:35 Hgb 8.9 L 9.1 L 9.3 L 11/23/17 05:45 Hgb 8.7 L (3) Transverse process fracture of RT L 4 Problem: Acute Narrative: Pain control. (4) A-fib Problem: Chronic Narrative: Place on Telemetry monitoring, continue amiodarone. Normally on anticoagulation with Coumadin, but this was put on hold due to supratherputic INR and following a fall that led to a large gluteal hematoma and Anemia from bleeding. needs discussion about Anticoagulation risk and benefits especially given his increased risks of falls which can cause serious injury such as subdural hematoma and consideration for just aspirin and plavix. (5) Discharge planning issues Problem: Acute Narrative: Needs skilled placement at discharge- inability to walk, weakness and recurrent falls puts him at increased risk for fractures,hematomas and even . (6) CHF (congestive heart failure) Problem: Chronic Qualifiers: Congestive heart failure type: unspecified congestive heart failure type Congestive heart failure chronicity: acute on chronic Qualified Code(s): I50.9 - Heart failure, unspecified (7) COPD (chronic obstructive pulmonary disease) Problem: Chronic (8) Venous stasis ulcers of both lower extremities Problem: Acute Narrative: Consult wound care for treatment recommendations. (9) PVD (peripheral vascular disease) Problem: Chronic (10) Diabetes Problem: Chronic Qualifiers: Diabetes mellitus type: type 2 (11) Constipation Problem: Resolved
[2017-11-23] MEDS: CHOLECALCIFEROL 1,000 UNIT CAPSULE PO SCH (08:20)
[2017-11-23] MEDS: HYDROcodone/ACETAMINOPHEN 1 EACH TABLET PO PRN (08:20)
[2017-11-23] MEDS: AMIODARONE HCL 200 MG TABLET PO SCH (08:20)
[2017-11-23] MEDS: POTASSIUM CHLORIDE 20 MEQ TABLET.SA PO SCH (08:21)
[2017-11-23] MEDS: HYDROCHLOROTHIAZIDE 12.5 MG CAPSULE PO SCH (08:21)
[2017-11-23] MEDS: SERTRALINE HCL 100 MG TABLET PO SCH (08:21)
[2017-11-23] MEDS: HYDROPHILIC OINTMENT 454 APPL JAR TP SCH ×2 (08:22→20:37)
--- NOTE | 2017-11-23 10:24 | PN ---
Progess Note - Interim Narrative: 11/23/17 10:21 I saw and examined this patient on 11/23/2017. I agree with the narrative and plan of GORDON Farris. Discussed with patient the risk and benefits of his anticoagulation. Because of his increased fall risk, he might be better with ASA. Continue with PT.
--- NOTE | 2017-11-23 14:36 | PN ---
Subjective - Date and Time Seen Date: 11/23/17 Time: 14:35 Subjective Narrative: FU Schaefer-Vale injury No new c/o Objective Objective Narrative: No compromise of overlying skin. Pitting edema in areas of ecchymosis. - Vitals Vitals: Last Vital Signs Temp 36.5 C 11/23/17 14:20 Pulse 77 11/23/17 14:20 Resp 16 11/23/17 14:20 BP 102/50 11/23/17 14:20 Pulse Ox 99 11/23/17 14:20 - Abnormal Lab Findings Abnormal Lab Findings: Abnormal Lab Results 11/23/17 Range/Units 05:45 RBC 3.44 L (4.7-6.0) M/mm3 Hgb 8.7 L (13.5-18.0) gm/dL Hct 29.0 L (42.0-52.0) % MCH 25.3 L (27-31) pg MCHC 30.0 L (32-36) g/dl RDW 17.8 H (11.5-14.0) % Immature Gran % (Auto) 0.60 H (0.001-0.429) % Immature Gran # (Auto) 0.05 H (0.000-0.0310) K/mm3 Neutrophils % 83.3 H (42-75.0) % Lymphocytes % 7.9 L (20-51) % Neutrophils # 7.2 H (1.3-6.0) K/mm3 Lymphocytes # 0.7 L (1.5-3.5) k/mm3 Assessment/Plan Plan Narrative: Stable Schaefer-Vale - Problems/Diagnosis (1) Schaefer Vale lesion Problem: Acute
[2017-11-23] MEDS: ROSUVASTATIN CALCIUM 20 MG TABLET PO SCH (20:37)
[2017-11-24] MEDS: HYDROcodone/ACETAMINOPHEN 1 EACH TABLET PO PRN ×2 (03:01→20:52)
[2017-11-24 05:31] LABS: Hematocrit 27.6 % (42.0-52.0); Hemoglobin 8.5 gm/dL (13.5-18.0); Mean Cell Volume 84.4 fl (78-100); Mean Corpuscular Hgb Conc 30.8 g/dl (32-36); Neutrophil # 6.3 K/mm3 (1.3-6.0); Neutrophil % 79.1 % (42-75.0); Platelet Count 273 K/mm3 (150-450); Red Blood Count 3.27 M/mm3 (4.7-6.0); Red Cell Distribution Width 17.4 % (11.5-14.0)
[2017-11-24 05:45] LABS: Anion Gap 7.3 mmol/L (6.8-13.8); BUN/Creatinine Ratio 23.4 (9.0-21.6); Calcium * 8.2 mg/dL (7.9-10.9); Carbon Dioxide 29.2 mmol/L (24-32.6); Estimated Creat Clear 79.8; Potassium 3.5 mmol/L (3.4-4.6)
[2017-11-24] MEDS: HYDROCHLOROTHIAZIDE 12.5 MG CAPSULE PO SCH (08:14)
[2017-11-24] MEDS: POTASSIUM CHLORIDE 20 MEQ TABLET.SA PO SCH (08:14)
[2017-11-24] MEDS: HYDROPHILIC OINTMENT 454 APPL JAR TP SCH ×2 (08:15→20:52)
[2017-11-24] MEDS: AMIODARONE HCL 200 MG TABLET PO SCH (08:15)
[2017-11-24] MEDS: CHOLECALCIFEROL 1,000 UNIT CAPSULE PO SCH (08:15)
[2017-11-24] MEDS: SERTRALINE HCL 100 MG TABLET PO SCH (08:15)
[2017-11-24 09:43] LABS: INR 1.09 INR (0.90-1.10); Prothrombin Time (Patient) 10.9 Seconds (9.0-11.0)
--- NOTE | 2017-11-24 14:04 | CONS ---
- Reason for consultation (1) Venous stasis ulcers of both lower extremities Date of Service: 11/24/17 HPI - General Narrative: Patient is a 62 year old male, recently admitted to the hospital for treatment of injury sustained from a recent fall resulting in a fracture to the right L4 transverse process, anemia, Congestive Heart Failure, COPD, peripheral vascular disease and diabetes. The consult was made regarding ulcers to the lower extremities. He is a [facility]standing [facility] in the past. The patient is unsure of when the open areas started. He has not been treating them. He denies pain associated with the ulcers, however does have significant pain associated with injuries from his fall. He states that he has been unable to walk since his accident, due to pain and weakness. Source: patient - History of Present Illness Timing/Duration: unsure Associated Symptoms: denies symptoms Allergies/Adverse Reactions: Allergies aspirin Adverse Reaction (Intermediate, Verified 11/20/17 10:33) Nausea Home Medications: Home Medications Medication Instructions Recorded Last Taken Hydrochlorothiazide [Microzide] 12.5 mg PO DAILY 12/18/16 Unknown Potassium Chloride 20 meq PO DAILY 06/30/17 Unknown HYDROcodone/ACETAMINOPHEN 1 each PO Q6H PRN 07/01/17 Unknown [Hydrocodone-Acetamin 7.5-325] Warfarin Sodium [Coumadin] 5 mg PO DAILY 11/18/17 Unknown Amiodarone HCl [Cordarone] 200 mg PO DAILY 11/20/17 Unknown Cholecalciferol (Vitamin D3) 2,000 unit PO DAILY 11/20/17 Unknown [Vitamin D3] Clopidogrel Bisulfate [Plavix] 75 mg PO DAILY 11/20/17 Unknown Rosuvastatin Calcium 40 mg PO HS 11/20/17 Unknown Sertraline HCl [Zoloft] 100 mg PO DAILY 11/20/17 Unknown metFORMIN HCL [Metformin HCl ER] 500 mg PO DAILY 11/20/17 Unknown - Patient's Past Medical History Patient History - Medical: Diabetes Type 2, Depression, Rheumatoid Arthritis, Other - PAD, PVD, TIA, Patient History - Cardiac/Respiratory: CHF, COPD, Hyperlipidemia, Myocardial Infarction, Pneumonia, Peripheral Vascular Disease, TIA Patient History - Cancer: No Hx of Cancer Patient History - Surgical Procedures: Colonoscopy, Total Knee Replacement - LT Patient History - Other: None - Family History Mother Family History - Medical: , Alzheimer's Disease, Diabetes Type 2, Dementia Family History - Cardiac/Respiratory: CVA/Stroke Family History - Cancer: No pertinent family hx Father Family History - Medical: , Diabetes Type 2 Family History - Cardiac/Respiratory: Myocardial Infarction Family History - Cancer: No pertinent family hx - Social History Living Situations: alone Abuse History: No History of abuse Psych History: No pertinent hx Smoking Status: Former smoker Have you smoked in the past 12 months: No Alcohol Use: heavy Drug Use: none - Immunizations Immunizations Up to Date: Yes Hx Pneumococcal Vaccination: No History of Influenza Vaccine: No Procedures AFTER-CATAR DISCISSION (01/01/15) ARTERIAL BLD GAS MEASURE (06/04/05) CATARAC PHACOEMULS/ASPIR (12/22/11) CLOSURE SKIN & SUBCUTANEOUS NEC (07/01/15) COLONOSCOPY (01/30/10) DESTRUCTION OF LEFT LENS, PERCUTANEOUS APPROACH (08/10/17) ENDOSC POLYPECTOMY OF LG INTEST (01/05/08) EXCIS KNEE SEMILUN CARTL (06/07/09) INSERT LENS AT CATAR EXT (12/22/11) KNEE STRUCTURE DIVISION (06/07/09) NONEXCIS DEBRID OF WOUND, INFECT, OR BURN (02/05/06) Medications - Medications Current Medications: Current Medications Acetaminophen/Hydrocodone Bitart ([place] 5-325) 1 each PO Q6H PRN PRN Reason: Pain Stop: 12/20/17 22:29 Last Admin: 11/24/17 03:01 Dose: 1 each Amiodarone HCl (Cordarone) 200 mg PO DAILY [facility] Stop: 12/21/17 09:01 Last Admin: 11/24/17 08:15 Dose: 200 mg Cholecalciferol (Vitamin D) 2,000 unit PO DAILY [facility] Stop: 12/21/17 09:01 Last Admin: 11/24/17 08:15 Dose: 2,000 unit Hydrochlorothiazide (Microzide) 12.5 mg PO DAILY [facility] Stop: 12/21/17 09:01 Last Admin: 11/24/17 08:14 Dose: 12.5 mg Metformin HCl (Glucophage Xr) 500 mg PO DAILY [facility] Stop: 12/21/17 09:01 Last Admin: 11/24/17 08:14 Dose: 500 mg Multi-Ingredient Ointment (Aquaphilic Ointment) 1 appl TP BID [facility] Stop: 12/21/17 21:01 Last Admin: 11/24/17 08:15 Dose: 1 appl Potassium Chloride (K-Dur) 20 meq PO DAILY [facility] Stop: 12/21/17 09:01 Last Admin: 11/24/17 08:14 Dose: 20 meq Rosuvastatin Calcium (Crestor) 40 mg PO HS [facility] Stop: 12/21/17 21:01 Last Admin: 11/23/17 20:37 Dose: 40 mg Sertraline HCl (Zoloft) 100 mg PO DAILY [facility] Stop: 12/21/17 09:01 Last Admin: 11/24/17 08:15 Dose: 100 mg Review of Systems - Review of Systems Generalized/Overall Review: Present: Weakness EENTM: Absent: Nose Congestion Respiratory: Absent: Cough Cardiac: Absent: Chest Pain Abdominal: Absent: Nausea Musculoskeletal: Present: Back Pain Neurological: Absent: Headache Skin: Present: Lesions Physical Examination - Exam Vital Signs: Vital Signs - Last Taken Temp 36.8 C 11/24/17 11:27 Pulse 88 11/24/17 11:27 Resp 20 11/24/17 11:27 BP 102/62 11/24/17 11:27 Pulse Ox 92 11/24/17 11:27 O2 Oxygen Delivery Method Room Air Comprehensive Narative: 11/25/17 16:07 patient is resting comfortably in the chair. he states that he does not ambulate at this time. Constitutional: Present: Alert, Cooperative ENT Exam: Present: hard of hearing Skin Exam: Present: warm/dry, other - there is an open area on the right lateral lower leg measuring ~ 0.4 x 0.2 x 0.1cm. large amount of yellow necrosis present. mild erythema. minimal drainage. periulcer tissue is intact. no open areas are observed on the left lower leg. multiple patches of dry skin. - Results and Findings: Narrative: Due to the amount of necrosis present in the ulcer of the right lower leg, recommend using Santyl daily. This will be covered with gauze and secured with tape. Wash the area with soap and water at dressing changes. Continue to monitor for additional open areas. Thank you for the consult, would be happy to continue care in our office at discharge if needed. Lab/Microbiology results last 24 hrs: Abnormal/Pending Laboratory Last 24 HRS 11/24/17 11/24/17 05:05 05:05 RBC 3.27 L Hgb 8.5 L Hct 27.6 L MCH 26.0 L MCHC 30.8 L RDW 17.4 H Immature Gran % (Auto) 0.60 H Immature Gran # (Auto) 0.05 H Neutrophils % 79.1 H Lymphocytes % 10.9 L Neutrophils # 6.3 H Lymphocytes # 0.9 L BUN/Creatinine Ratio 23.4 H Random Glucose 129 H - Assessments/Findings (1) Venous stasis ulcers of both lower extremities Problem: Acute
--- NOTE | 2017-11-24 18:57 | PN ---
Subjective - Date and Time Seen Date: 11/24/17 Time: 13:00 Subjective Narrative: Patient seen and examined at bedside. No acute issues overnight. Hemoglobin stable. Patient denies any significant pain at the time of my exam. Objective - Review of Systems Generalized/Overall Review: Reports: No Symptoms Reported EENTM: Reports: No Symptoms Reported Respiratory: Reports: No Symptoms Reported Cardiac: Reports: No Symptoms Reported Abdominal: Reports: No Symptoms Reported Genitourinary Symptoms: Reports: No Symptoms Reported Musculoskeletal Complaints: Reports: Other - Right buttock/hip pain secondary to hematoma, chronic joint pain related to RA, chronic lower extremity pain related to chronic venous stasis Neurological: Reports: No Symptoms Reported Skin: Reports: Other - Chronic lower extremity skin changes (currently at baseline) Endocrine: Reports: No Symptoms Reported Misc: All systems neg except as marked - Vitals Vitals: Last Vital Signs Temp 36.5 C 11/24/17 18:36 Pulse 73 11/24/17 18:36 Resp 18 11/24/17 18:36 BP 107/46 11/24/17 18:36 Pulse Ox 97 11/24/17 18:36 - Abnormal Lab Findings Abnormal Lab Findings: Abnormal Lab Results 11/24/17 11/24/17 Range/Units 05:05 05:05 RBC 3.27 L (4.7-6.0) M/mm3 Hgb 8.5 L (13.5-18.0) gm/dL Hct 27.6 L (42.0-52.0) % MCH 26.0 L (27-31) pg MCHC 30.8 L (32-36) g/dl RDW 17.4 H (11.5-14.0) % Immature Gran % (Auto) 0.60 H (0.001-0.429) % Immature Gran # (Auto) 0.05 H (0.000-0.0310) K/mm3 Neutrophils % 79.1 H (42-75.0) % Lymphocytes % 10.9 L (20-51) % Neutrophils # 6.3 H (1.3-6.0) K/mm3 Lymphocytes # 0.9 L (1.5-3.5) k/mm3 BUN/Creatinine Ratio 23.4 H (9.0-21.6) Random Glucose 129 H (70-110) mg/dL - Exam Constitutional: Present: Alert, Oriented x3, Cooperative, No distress, Thin and frail, Looks Older than stated age ENT Exam: Present: other - poor dentition Respiratory: Present: no respiratory distress, no accessory muscle use, expiration (prolonged), other - Diminished breath sounds bilaterally without crackles, rhonchi or wheezes noted Cardiovascular/Chest: Present: systolic murmur, irregularly irregular, edema Abdomen: Present: soft, nontender, nondistended Extremity: Present: lower extremity edema, other - Severe RA deformities of multiple joints, especially in the his hands and feet bilaterally Skin Exam: Present: other - Chronic lower extremity skin changes secondary to chronic venous stasis with associated dermatitis Neurologic: Present: alert, normal mood/affect, oriented x 3 Appearance: Present: appropriate insight, neat Eye contact: Present: cooperative, good eye contact Thoughts: Present: normal thought pattern, no apparent hallucination Assessment/Plan Plan Narrative: Patient's hemoglobin is stable. Discharge planning in place. Patient's risks of bleeding vs. benefits of anticoagulation were discussed at length with the patient and the decision was made that the risks outweigh the benefits so patient will remain off coumadin and plavix and we will place the patient on aspirin 325mg PO daily when okay with general surgery. Patient with generalized weakness as expected due to his acute medical problems and he would benefit from SNF placement at discharge for ongoing therapies including PT and OT as the patient is NOT safe to return home at this time. - Problems/Diagnosis (1) Gluteal hematoma Problem: Acute (2) Acute blood loss anemia Problem: Acute (3) [place] lesion Problem: Acute (4) A-fib Problem: Chronic
[2017-11-24] MEDS: ROSUVASTATIN CALCIUM 20 MG TABLET PO SCH (20:52)
[2017-11-25] MEDS: HYDROcodone/ACETAMINOPHEN 1 EACH TABLET PO PRN (02:43)
[2017-11-25 06:22] LABS: Hematocrit 29.2 % (42.0-52.0); Hemoglobin 9.1 gm/dL (13.5-18.0); Mean Cell Volume 84.4 fl (78-100); Mean Corpuscular Hemoglobin 26.3 pg (27-31); Mean Corpuscular Hgb Conc 31.2 g/dl (32-36); Platelet Count 282 K/mm3 (150-450); Red Blood Count 3.46 M/mm3 (4.7-6.0); Red Cell Distribution Width 17.6 % (11.5-14.0); White Blood Count 7.3 K/mm3 (4.0-10.5)
[2017-11-25] MEDS: HYDROPHILIC OINTMENT 454 APPL JAR TP SCH ×2 (09:59→22:25)
[2017-11-25] MEDS: AMIODARONE HCL 200 MG TABLET PO SCH (10:00)
[2017-11-25] MEDS: CHOLECALCIFEROL 1,000 UNIT CAPSULE PO SCH (10:00)
[2017-11-25] MEDS: SERTRALINE HCL 100 MG TABLET PO SCH (10:00)
[2017-11-25] MEDS: POTASSIUM CHLORIDE 20 MEQ TABLET.SA PO SCH (10:00)
[2017-11-25] MEDS: HYDROCHLOROTHIAZIDE 12.5 MG CAPSULE PO SCH (10:00)
--- NOTE | 2017-11-25 17:10 | PN ---
Subjective - Date and Time Seen Date: 11/25/17 Time: 08:00 Subjective Narrative: Patient seen and examined at bedside. No acute issues overnight. H&H remains stable. Patient denies any significant pain at the time of my exam. Objective - Review of Systems Generalized/Overall Review: Reports: Weakness EENTM: Reports: No Symptoms Reported Respiratory: Reports: No Symptoms Reported Cardiac: Reports: No Symptoms Reported Abdominal: Reports: No Symptoms Reported Genitourinary Symptoms: Reports: No Symptoms Reported Musculoskeletal Complaints: Reports: Other - Right buttock/hip pain secondary to hematoma, chronic joint pain related to RA, chronic lower extremity pain related to chronic venous stasis Neurological: Reports: No Symptoms Reported Skin: Reports: Other - Chronic lower extremity skin changes (currently at baseline) Endocrine: Reports: No Symptoms Reported Misc: All systems neg except as marked - Vitals Vitals: Last Vital Signs Temp 36.3 C L 11/25/17 15:08 Pulse 64 11/25/17 15:08 Resp 16 11/25/17 15:08 BP 105/55 11/25/17 15:08 Pulse Ox 95 11/25/17 15:08 - Abnormal Lab Findings Abnormal Lab Findings: Abnormal Lab Results 11/25/17 Range/Units 06:10 RBC 3.46 L (4.7-6.0) M/mm3 Hgb 9.1 L (13.5-18.0) gm/dL Hct 29.2 L (42.0-52.0) % MCH 26.3 L (27-31) pg MCHC 31.2 L (32-36) g/dl RDW 17.6 H (11.5-14.0) % - Exam Constitutional: Present: Alert, Oriented x3, Cooperative, No distress, Thin and frail, Looks Older than stated age ENT Exam: Present: other - poor dentition Respiratory: Present: no respiratory distress, no accessory muscle use, expiration (prolonged), other - Diminished breath sounds bilaterally without crackles, rhonchi or wheezes noted Cardiovascular/Chest: Present: systolic murmur, irregularly irregular, edema Abdomen: Present: soft, nontender, nondistended Extremity: Present: lower extremity edema, other - Severe RA deformities of multiple joints, especially in the his hands and feet bilaterally Skin Exam: Present: other - Chronic lower extremity skin changes secondary to chronic venous stasis with associated dermatitis Neurologic: Present: alert, normal mood/affect, oriented x 3 Appearance: Present: appropriate insight Eye contact: Present: cooperative, good eye contact Thoughts: Present: normal thought pattern, no apparent hallucination Assessment/Plan Plan Narrative: Patient's H&H remains stable. Patient's risks of bleeding vs. benefits of anticoagulation were discussed again with the patient today. The decision was made that the risks outweigh the benefits so patient will remain off coumadin and plavix and we will place the patient on aspirin 325mg PO daily. I discussed with Dr. Meredith who agrees that it should be fine to go ahead and start the patient on aspirin now. Patient with ongoing generalized weakness as expected due to his acute medical problems and he would benefit from SNF placement at discharge for ongoing therapies including PT and OT as the patient is NOT safe to return home at this time. The patient has been accepted and he is agreeable to going to [facility] for rehab. Plan for discharge to [facility] in the AM. - Problems/Diagnosis (1) Gluteal hematoma Problem: Acute (2) Acute blood loss anemia Problem: Acute (3) [place] lesion Problem: Acute (4) A-fib Problem: Chronic
[2017-11-25] MEDS: ROSUVASTATIN CALCIUM 20 MG TABLET PO SCH (22:23)
[2017-11-26 06:54] VITALS: BP 114/54
[2017-11-26] MEDS: HYDROPHILIC OINTMENT 454 APPL JAR TP SCH (08:13)
[2017-11-26] MEDS: AMIODARONE HCL 200 MG TABLET PO SCH (08:13)
[2017-11-26] MEDS: CHOLECALCIFEROL 1,000 UNIT CAPSULE PO SCH (08:13)
[2017-11-26] MEDS: HYDROCHLOROTHIAZIDE 12.5 MG CAPSULE PO SCH (08:13)
[2017-11-26] MEDS: SERTRALINE HCL 100 MG TABLET PO SCH (08:13)
[2017-11-26] MEDS: POTASSIUM CHLORIDE 20 MEQ TABLET.SA PO SCH (08:13)
--- NOTE | 2017-11-26 08:56 | DS ---
(1) Gluteal hematoma Problem: Acute (2) Acute blood loss anemia Problem: Acute (3) [place] lesion Problem: Acute (4) A-fib Problem: Chronic Description of Stay: ADMISSION DATE: 11/20/2017 DISCHARGE DATE: 11/26/2017 ADMISSION HPI by GORDON Coe: Mr. Hunter is a 62-yr-old WM pt of Dr. Khushbu Castillo with a PMH of:A-fib, CHF, Chronic Alcohol use, COPD, DM II, HLD, PAD, PVD, TIA, & Venous Stasis Dermatitis. History is unobtainable from the pt due to Dementia. Pt was being seen by [facility] staff and apparently was found on the floor and the emergency squad was called. Pt found to be Hypoxic in the 80's and Oxygen with 4 LNC was applied bringing the Oxygen to > 90%. Pt was reportedly unable to ambulate and complained of worsening pain on his RT groin and that he had fallen on . He was seen at [facility] ER on 11/18/17 due to complaints of not feeling well and that he had fallen several times on his back. CT Abdomen/ Pelvis obtained on that visit showed a large subcutaneous hematoma on the RT gluteal region, but there were no other acute findings. His lab studies showed H /H--> 7.7/24.9,--> 8.0/25.9, INR-->4.74. He was discharged and advised to follow up with PCP. At the ER today, he had RT knee X-ray and RT hip X-rays which did not have any acute findings. The CXR showed Babisilar opacities and Fibrotic changes. The CT of Pelvis showed: Fracture of RT L 4 transverse process, Large RT gluteal hematoma, likely hematoma on the LT iliospoas muscle & bilateral external iliac chain Lymphadenopathy. Laboratory studies showed--> WBC 12,900 with a LT shift, H/H-->8.9/29, Total Bili--> 1.9, otherwise all other labs were unremarkable. Pt's previous H/H on 09/29/17 was 14.1/44. He will be admitted for the gluteal hematoma which may require surgical intervention due to it's size and risk of tissue damage/ from increased pressure of fluid within limited space. HOSPITAL COURSE: The patient was admitted to the hospital after sustaining multiple mechanical falls which ultimately resulted in multiple hematomas as documented below on the patients CT of the pelvis from admission. Secondary to multiple hematomas , the patient suffered acute blood loss anemia in the setting of chronic anemia of chronic disease. The patient has atrial fibrillation and was anticoagulated with Coumadin at the time of admission. His Coumadin was held during his hospital stay and the risks of bleeding vs. benefits of anticoagulation were discussed with the patient at length multiple times during his admission. The decision was made that the risks outweigh the benefits so patient will remain off Coumadin. The original plan was to have the patient transitioned to aspirin 325 mg daily however secondary to his allergy to aspirin we will keep him off aspirin and have him remain on Plavix 75 mg daily. During the patient s admission, he had issues with ongoing generalized weakness as expected due to his acute medical problems and it was felt he would benefit from SNF placement at discharge for ongoing therapies including PT and OT as the patient is NOT safe to return home at this time. The patient has been accepted and he is agreeable to going to [facility] for rehab. The patient was discharged in stable condition and will plan to recheck a hemogram and in approximately 1 week to monitor for stability. FOLLOW-UP APPOINTMENTS: -Dr. Castillo will see the patient at [facility] on Thursday11/28/2017. -Check hemogram in 1 week NEW OR CHANGED MEDICATIONS: -Plavix 75mg PO daily DISCONTINUED MEDICATIONS: -Coumadin RADIOLOGY REPORTS: Right pelvis and hip x-ray on 11/20/2017: Limited examination due to positioning. No definable fracture noted. Right knee x-ray on 11/20/2017: No definite acute osseous findings. Single view chest x-ray on 11/20/2017: Hypoventilatory changes. Potential background of fibrotic changes of the lungs. Correlate clinically. CT without contrast of the pelvis on 11/20/2017: 1. There is no definite signs of pelvic fracture. There is a fracture of the right L4 transverse processes. 2. Large right gluteal/low back hyperdense masses most likely hematomas. 3. Additional mass with fluid/fluid level, likely additional hematoma, intramuscular within the left iliopsoas muscle 4. Clinical correlation is advised. Given that neoplastic process cannot be entirely ruled out in regards to these masses, consider clinical/imaging follow- up to document resolution of the masses. 5. Bilateral external iliac chain lymphadenopathy, nonspecific. Consider reactive lymph node enlargement versus neoplasm such as metastatic disease or lymphoma. 6. Large amount of stool within the rectum. Consider fecal impaction. Procedures Performed: none Discharge Disposition: [facility] Disposition: [facility] Condition: Stable Discharge Activity: Activity as tolerated Discharge Diet: General/regular food Discharge Level of Care:: SNF [facility] Therapy: Physicial Therapy, Occupation Therapy Referrals: Khushbu Castillo DO [Primary Care Provider] - Additional Patient Instructions (free text): [facility] ongoing, please call and fax discharge information to them. TCM appointment unless jail discharge. Thank you! Francie @ [phone]. Dr. Castillo will see the patient at [facility] on Thursday11/28/2017. Prescriptions (Any new or edited meds): HYDROcodone/ACETAMINOPHEN [Hydrocodone-Acetamin 7.5-325] 1 each PO Q6H PRN #75 tablet PRN Reason: Pain Hydrophilic Ointment [Aquaphilic Ointment] 1 appl TP BID #1 jar Complete Home Medications List: Complete Home Medication List: Hydrochlorothiazide [Microzide] 12.5 mg PO DAILY 12/18/16 Potassium Chloride 20 meq PO DAILY 06/30/17 Amiodarone HCl [Cordarone] 200 mg PO DAILY 11/20/17 Cholecalciferol (Vitamin D3) [Vitamin D3] 2,000 unit PO DAILY 11/20/17 Clopidogrel Bisulfate [Plavix] 75 mg PO DAILY 11/20/17 Rosuvastatin Calcium 40 mg PO HS 11/20/17 Sertraline HCl [Zoloft] 100 mg PO DAILY 11/20/17 metFORMIN HCL [Metformin HCl ER] 500 mg PO DAILY 11/20/17 Collagenase Clostridium Hist. [Santyl] 1 appl TP DAILY tube 11/26/17 HYDROcodone/ACETAMINOPHEN [Hydrocodone-Acetamin 7.5-325] 1 each PO Q6H PRN #75 tablet 11/26/17 Hydrophilic Ointment [Aquaphilic Ointment] 1 appl TP BID #1 jar 11/26/17 Amb Orders for Discharge: Hemogram Time Frame: 1 Week, Location: Determined By Patient
[2017-11-26] MEDS ORDERED: COLLAGENASE CLOSTRIDIUM HIST. 30 APPL TUBE TP SCH (09:00)
[2017-11-26] MEDS ORDERED: CLOPIDOGREL BISULFATE 75 MG TABLET PO SCH (09:00)
== END 2017-11-26 10:04 | DRG 605 ==
LOC: ER 10:22 → MS 17:35 → OBSVTOIN 11-21 12:09
PROVIDERS: ADMIT Internal Medicine; ATTEND Internal Medicine
PROC: 30263N1 (ICD-10-PCS; 2017-11-20)
PROC: [UNRECOGNIZED PROCEDURE] (principal; 2017-11-21)
DX: K59.00 Constipation, unspecified; S30.0XXA Contusion of lower back and pelvis, initial encounter; W18.30XA Fall on same level, unspecified, initial encounter; Z87.891 Personal history of nicotine dependence; S32.049A Unspecified fracture of fourth lumbar vertebra, initial encounter for closed fracture; I25.2 Old myocardial infarction; Z86.73 Personal history of transient ischemic attack (TIA), and cerebral infarction without residual deficits; Y92.129 Unspecified place in nursing home as the place of occurrence of the external cause; Z88.6 Allergy status to analgesic agent; E78.5 Hyperlipidemia, unspecified; D62 Acute posthemorrhagic anemia; Z91.81 History of falling; R53.1 Weakness; F10.21 Alcohol dependence, in remission; J44.9 Chronic obstructive pulmonary disease, unspecified; R59.0 Localized enlarged lymph nodes; E11.9 Type 2 diabetes mellitus without complications; Z79.01 Long term (current) use of anticoagulants; I87.2 Venous insufficiency (chronic) (peripheral); I48.2 Chronic atrial fibrillation